=== PATIENT | male | born 1960 | race Caucasian/White ===

== ENCOUNTER → 2017-10-02 10:23 | Outpatient (REF) | payer MEDICAID, SELFPAY ==
[2017-10-02 14:08] LABS: Amphetamine/Metha Screen,Urine Negative ng/mL (<1000); Barbiturates Screen,Urine Negative ng/mL (<200); Benzodiazepines Screen,Urine Positive ng/mL (200); Cannabinoid Screen,Urine Negative ng/mL (<50); Cocaine Screen,Urine Negative ng/g (<300); Methadone Screen,Urine Negative ng/mL (<300); Opiate Screen,Urine Negative ng/mL (<300); Phencyclidine Screen,Urine Negative ng/mL (<25)
[2017-10-02 18:40] LABS: Basophils # 0.1 K/mm3 (0-0.2); Eosinophils # 0.4 K/mm3 (0.0-0.4); Eosinophils % 3.4 % (0.1-12.0); Hematocrit 44.3 % (42.0-52.0); Hemoglobin 14.4 g/dL (14.1-18.0); Lymphocytes # 1.7 K/mm3 (0.7-4.5); Lymphocytes % 16.5 K/mm3 (10-50); Mean Corpuscular HGB Conc 32.6 g/dL (31.8-35.4); Mean Corpuscular Hemoglobin 32.6 pg (27.0-31.2); Mean Platelet Volume 12.8 fl (7.4-10.4); Monocytes # 1.1 K/mm3 (0.1-1.0); Monocytes % 10.8 % (1.7-9.3); Neutrophils # 7.1 K/mm3 (1.8-7.8); Neutrophils % 68.4 % (37.0-80.0); Platelet Count 225 K/mm3 (142-424); Red Blood Count 4.43 M/mm3 (4.60-6.20); Red Cell Distribution Width 12.1 % (11.5-17.5); White Blood Count 10.4 K/mm3 (4.8-10.8)
[2017-10-02 19:10] LABS: Alanine Aminotransferase 54 U/L (12-78); Albumin Level 3.7 gm/dL (3.4-5.0); Alkaline Phosphatase 90 U/L (46-116); Anion Gap 13.3 mEq/L (5-15); Aspartate Amino Transferase 24 U/L (15-37); Bilirubin,Total 0.4 mg/dL (0.2-1.0); Blood Urea Nitrogen 22 mg/dL (7-18); Calcium 8.9 mg/dL (8.5-10.1); Carbon Dioxide 23 mmol/L (21.0-32.0); Chloride 106 mmol/L (98-107); Chol/HDL Ratio 5.2 (1-3.5); Cholesterol 232 mg/dL (140-200); Creatinine,Serum 1.47 mg/dL (0.70-1.30); Estimated Glomerular Filt Rate 50 ml/min (>60); GFR (African American) 60 ML/MIN (>60); Globulin 3.7 gm/dl (1.3-3.2); Glucose 100 mg/dL (74-106); HDL Cholesterol 45 mg/dL (27-67); LDL Cholesterol 161 mg/dL (0-130); Potassium 4.3 mmoL/L (3.5-5.1); Sodium 138 mmol/L (136-145); T4 (Thyroxine) 8.8 ug/dl (4.7-13.3); Thyroid Stimulating Hormone 13.04 uIU/ml (0.358-3.740); Total Protein,Serum 7.4 gm/dL (6.4-8.2); Triglycerides 132 mg/dL (30-200); VLDL Cholesterol 26 mg/dL (0-40)
[2017-10-04 12:14] LABS: Prostate Specific Ag <0.1 ng/mL (0.0-4.0)
[2017-10-04 12:15] LABS: PSA, Free <0.01 ng/mL
== END ==
LOC: LAB 10:23
PROVIDERS: Visit Provider Nurse Practitioner Family
DX: R53.83 Other fatigue (principal); Z79.899 Other long term (current) drug therapy; Z12.5 Encounter for screening for malignant neoplasm of prostate
CPT/HCPCS: 80053; 80061; 80305; 84153; 84154; 84436; 84443; 85025

== ENCOUNTER → 2017-12-11 17:45 | Outpatient (REF) | payer MEDICAID, SELFPAY ==
[2017-12-11 20:07] LABS: Amphetamine/Metha Screen,Urine Negative ng/mL (<1000); Barbiturates Screen,Urine Negative ng/mL (<200); Benzodiazepines Screen,Urine Positive ng/mL (200); Cannabinoid Screen,Urine Positive ng/mL (<50); Cocaine Screen,Urine Negative ng/g (<300); Methadone Screen,Urine Negative ng/mL (<300); Opiate Screen,Urine Negative ng/mL (<300); Phencyclidine Screen,Urine Negative ng/mL (<25)
== END ==
LOC: LAB 17:45
PROVIDERS: Visit Provider Nurse Practitioner Family
DX: Z79.899 Other long term (current) drug therapy (principal)
CPT/HCPCS: 80305

== ENCOUNTER → 2018-01-08 17:16 | Outpatient (REF) | payer MEDICAID, SELFPAY ==
[2018-01-08 18:14] LABS: Basophils # 0.1 K/mm3 (0-0.2); Basophils % 0.9 % (0.1-2.0); Eosinophils # 0.3 K/mm3 (0.0-0.4); Eosinophils % 3.9 % (0.1-12.0); Hemoglobin 13.2 g/dL (14.1-18.0); Lymphocytes # 1.9 K/mm3 (0.7-4.5); Lymphocytes % 22.7 K/mm3 (10-50); Mean Corpuscular HGB Conc 33.8 g/dL (31.8-35.4); Mean Corpuscular Volume 94.8 fl (80-94); Mean Platelet Volume 11.2 fl (7.4-10.4); Monocytes # 0.7 K/mm3 (0.1-1.0); Monocytes % 8.5 % (1.7-9.3); Neutrophils # 5.3 K/mm3 (1.8-7.8); Platelet Count 202 K/mm3 (142-424); Red Blood Count 4.12 M/mm3 (4.60-6.20); White Blood Count 8.3 K/mm3 (4.8-10.8)
[2018-01-08 19:39] LABS: Hemoglobin A1C 5.6 % (0.0-7.0)
[2018-01-08 19:42] LABS: Alanine Aminotransferase 42 U/L (12-78); Albumin Level 3.6 gm/dL (3.4-5.0); Alkaline Phosphatase 93 U/L (46-116); Aspartate Amino Transferase 25 U/L (15-37); Bilirubin,Total 0.3 mg/dL (0.2-1.0); Blood Urea Nitrogen 18 mg/dL (7-18); Calcium 9.3 mg/dL (8.5-10.1); Carbon Dioxide 25 mmol/L (21.0-32.0); Chloride 105 mmol/L (98-107); Chol/HDL Ratio 6.6 (1-3.5); Cholesterol 278 mg/dL (140-200); Creatinine,Serum 1.45 mg/dL (0.70-1.30); Estimated Glomerular Filt Rate 50 ml/min (>60); GFR (African American) 61 ML/MIN (>60); Globulin 3.5 gm/dl (1.3-3.2); Glucose 86 mg/dL (74-106); HDL Cholesterol 42 mg/dL (27-67); LDL Cholesterol 200 mg/dL (0-130); Sodium 141 mmol/L (136-145); T4 (Thyroxine) 9.2 ug/dl (4.7-13.3); Thyroid Stimulating Hormone 9.57 uIU/ml (0.358-3.740); Total Protein,Serum 7.1 gm/dL (6.4-8.2); Triglycerides 181 mg/dL (30-200); VLDL Cholesterol 36 mg/dL (0-40)
[2018-01-10 20:11] LABS: PSA, Free <0.01 ng/mL; Prostate Specific Ag <0.1 ng/mL (0.0-4.0)
== END ==
LOC: LAB 17:16
PROVIDERS: Visit Provider Nurse Practitioner Family
DX: F41.9 Anxiety disorder, unspecified (principal); R05 Cough; J30.89 Other allergic rhinitis; Z85.46 Personal history of malignant neoplasm of prostate
CPT/HCPCS: 80053; 80061; 83036; 84153; 84154; 84436; 84443; 85025

== ENCOUNTER → 2018-03-19 17:09 | Outpatient (REF) | payer MEDICARE, MEDICAID, SELFPAY ==
[2018-03-19 19:09] LABS: Amphetamine/Metha Screen,Urine Negative ng/mL (<1000); Barbiturates Screen,Urine Negative ng/mL (<200); Benzodiazepines Screen,Urine Negative ng/mL (<200); Cannabinoid Screen,Urine Negative ng/mL (<50); Cocaine Screen,Urine Negative ng/mL (<300); Methadone Screen,Urine Negative ng/mL (<300); Opiate Screen,Urine Negative ng/mL (<300); Phencyclidine Screen,Urine Negative ng/mL (<25)
== END ==
LOC: LAB 17:09
PROVIDERS: Visit Provider Nurse Practitioner Family
DX: Z79.899 Other long term (current) drug therapy (principal)
CPT/HCPCS: 80305

== ENCOUNTER → 2018-03-24 11:49 | Outpatient (CLI) | payer MEDICARE, MEDICAID, SELFPAY ==
[2018-03-24 11:58] LABS: Microscopic, Urine URINE MICROSCOPIC (MICROSCOPIC)
[2018-03-24 12:18] LABS: Appearance,Urine CLEAR (Clear); Bilirubin,Urine Negative (Negative); Blood, Urine Negative (Negative); Color,Urine YELLOW (Yellow); Glucose,Urine (UA) Negative (Negative); Ketones,Urine Negative (Negative); Leukocyte Esterase,Urine Negative (Negative); Nitrate,Urine Negative (Negative); PH,Urine 5.5 (5.0-8.5); Protein,Urine Negative (Negative); Specific Gravity, Urine >= 1.030 (1.005-1.030); Urobilinogen,Urine 0.2 EU/dl (0.2)
[2018-03-24 12:36] LABS: Basophils # 0.1 K/mm3 (0-0.2); Basophils % 0.8 % (0.1-2.0); Eosinophils # 0.4 K/mm3 (0.0-0.4); Eosinophils % 4.4 % (0.1-12.0); Hematocrit 42.8 % (42.0-52.0); Lymphocytes # 2.2 K/mm3 (0.7-4.5); Lymphocytes % 22.7 K/mm3 (10-50); Mean Corpuscular HGB Conc 32.7 g/dL (31.8-35.4); Mean Corpuscular Hemoglobin 31.4 pg (27.0-31.2); Mean Platelet Volume 10.4 fl (7.4-10.4); Monocytes # 0.9 K/mm3 (0.1-1.0); Monocytes % 9.2 % (1.7-9.3); Neutrophils % 62.9 % (37.0-80.0); Platelet Count 225 K/mm3 (142-424); Red Blood Count 4.46 M/mm3 (4.60-6.20); Red Cell Distribution Width 12.3 % (11.5-17.5); White Blood Count 9.6 K/mm3 (4.8-10.8)
[2018-03-24 12:44] LABS: Bacteria,Urine 1+ /lpf; Mucus,Urine 2+ /lpf; WBC,Urine Occasional #/hpf (0-3)
[2018-03-24 12:48] LABS: Creatinine,Urine Random 249 mg/dL (20-320); Total Protein,Urine Random 18.7 mg/dL (0.0-11.9)
[2018-03-24 13:33] LABS: Albumin Level 3.7 gm/dL (3.4-5.0); Anion Gap 13.1 mEq/L (5-15); Blood Urea Nitrogen 18 mg/dL (7-18); Calcium 9.1 mg/dL (8.5-10.1); Carbon Dioxide 26 mmol/L (21.0-32.0); Chloride 109 mmol/L (98-107); Creatinine,Serum 1.22 mg/dL (0.70-1.30); Estimated Glomerular Filt Rate 61 ml/min (>60); GFR (African American) 74 ML/MIN (>60); Glucose 102 mg/dL (74-106); Potassium 5.1 mmoL/L (3.5-5.1); Sodium 143 mmol/L (136-145)
[2018-03-24 13:42] LABS: Alanine Aminotransferase 31 U/L (12-78); Albumin Level 3.7 gm/dL (3.4-5.0); Albumin/Globulin Ratio 1.1 (1.1-1.8); Alkaline Phosphatase 96 U/L (46-116); Anion Gap 12.3 mEq/L (5-15); Aspartate Amino Transferase 16 U/L (15-37); Bilirubin,Total 0.4 mg/dL (0.2-1.0); Blood Urea Nitrogen 18 mg/dL (7-18); Calcium 9.1 mg/dL (8.5-10.1); Carbon Dioxide 27 mmol/L (21.0-32.0); Chloride 110 mmol/L (98-107); Chol/HDL Ratio 5.9 (1-3.5); Cholesterol 252 mg/dL (140-200); Creatinine,Serum 1.22 mg/dL (0.70-1.30); Estimated Glomerular Filt Rate 61 ml/min (>60); GFR (African American) 74 ML/MIN (>60); Globulin 3.4 gm/dl (1.3-3.2); Glucose 103 mg/dL (74-106); HDL Cholesterol 43 mg/dL (27-67); LDL Cholesterol 187 mg/dL (0-130); Potassium 5.3 mmoL/L (3.5-5.1); Sodium 144 mmol/L (136-145); Thyroid Stimulating Hormone 0.81 uIU/ml (0.358-3.740); Total Protein,Serum 7.1 gm/dL (6.4-8.2); Triglycerides 110 mg/dL (30-200); VLDL Cholesterol 22 mg/dL (0-40)
[2018-03-26 11:42] LABS: Free T4 (Free Thyroxine) 1.14 ng/dl (0.76-1.46)
[2018-03-27 07:01] LABS: PSA, Free <0.01 ng/mL; Parathyroid Hormone Intact 60 pg/mL (15-65); Prostate Specific Ag <0.1 ng/mL (0.0-4.0); Vitamin D 25 Hydroxy 28.1 ng/mL (30.0-100.0)
== END ==
PROVIDERS: Internal Medicine Nephrology; Visit Provider Nurse Practitioner Family
DX: E05.90 Thyrotoxicosis, unspecified without thyrotoxic crisis or storm (principal); E78.5 Hyperlipidemia, unspecified; I10 Essential (primary) hypertension; R33.9 Retention of urine, unspecified; R53.83 Other fatigue; N28.9 Disorder of kidney and ureter, unspecified
CPT/HCPCS: 36415; 80053; 80061; 80069; 81001; 82570; 82652; 83970; 84153; 84154; 84155; 84439; 84443; 85025

== ENCOUNTER → 2018-03-24 13:18 | Outpatient (POV) | payer MEDICARE, MEDICAID, SELFPAY | PROVIDERS: Family Provider Emergency Medicine; PCP Emergency Medicine; Visit Provider Internal Medicine Nephrology | DX: Z00.00 Encounter for general adult medical examination without abnormal findings (principal) ==

== ENCOUNTER → 2018-04-03 16:37 | Outpatient (CLI) | payer MEDICARE, MEDICAID, SELFPAY ==
[2018-04-03 18:09] LABS: Anion Gap 15.5 mEq/L (5-15); Blood Urea Nitrogen 26 mg/dL (7-18); Calcium 9.5 mg/dL (8.5-10.1); Carbon Dioxide 27 mmol/L (21.0-32.0); Chloride 106 mmol/L (98-107); Creatinine,Serum 1.56 mg/dL (0.70-1.30); Estimated Glomerular Filt Rate 46 ml/min (>60); GFR (African American) 56 ML/MIN (>60); Glucose 97 mg/dL (74-106); Potassium 4.5 mmoL/L (3.5-5.1); Sodium 144 mmol/L (136-145)
== END ==
PROVIDERS: Physician Assistant; Family Provider Emergency Medicine; PCP Emergency Medicine; Visit Provider Internal Medicine Nephrology
DX: E87.5 Hyperkalemia (principal)
CPT/HCPCS: 36415; 80048

== ENCOUNTER → 2018-05-28 16:45 | Outpatient (REF) | payer MEDICARE, MEDICAID, SELFPAY ==
[2018-05-28 19:24] LABS: Amphetamine/Metha Screen,Urine Negative ng/mL (<1000); Barbiturates Screen,Urine Negative ng/mL (<200); Benzodiazepines Screen,Urine Negative ng/mL (<200); Cannabinoid Screen,Urine Negative ng/mL (<50); Cocaine Screen,Urine Negative ng/mL (<300); Methadone Screen,Urine Negative ng/mL (<300); Opiate Screen,Urine Negative ng/mL (<300); Phencyclidine Screen,Urine Negative ng/mL (<25)
== END ==
LOC: LAB 16:45
PROVIDERS: Visit Provider Nurse Practitioner Family
DX: Z79.899 Other long term (current) drug therapy
CPT/HCPCS: 80305

== ENCOUNTER → 2018-06-23 14:52 | Outpatient (CLI) | payer MEDICARE, MEDICAID, SELFPAY ==
--- NOTE | 2018-06-23 | US_ITS ---
US kidney retroperitoneal comp Ordering Physician: Filipe Fitzgerald Patient Age: 57 years: Male HISTORY: ITS.REASON: RENAL INSUFFICIENCY Renal insufficiency. Abnormal labs. HISTORY of kidney stones. HISTORY of prostate cancer. TECHNIQUE: Ultrasound both kidneys. COMPARISON : None relevant this facility FINDINGS No hydronephrosis nor mass in either kidney.. Appear to be good color Doppler flow both kidneys Left kidney. Suggestion minimal Nonobstructive nephrolithiasis lower pole left kidney. Right kidney. 8.4 cm length x 4.6 cm x 4.76 cm. Left kidney. 9.9 cm length x 4.9 cm x 6 cm. Incidental note of shadowing gallstone in gallbladder. 2.4 cm maximum length gallstone. Partially imaged included spleen appears normal size IMPRESSION: Kidneys appear normal in size.. Cortex well-maintained bilaterally. No discrete hydronephrosis or mass. Question/Suspect small nonobstructive calculi lower pole calyx left kidney associated upper normal prominence of associated, slight generous lower pole calyx.
[2018-06-23 14:56] LABS: Microscopic, Urine URINE MICROSCOPIC (MICROSCOPIC)
[2018-06-23 15:06] LABS: Basophils # 0.1 K/mm3 (0-0.2); Basophils % 0.8 % (0.1-2.0); Eosinophils # 0.3 K/mm3 (0.0-0.4); Eosinophils % 3.4 % (0.1-12.0); Hematocrit 44.2 % (42.0-52.0); Lymphocytes # 2.5 K/mm3 (0.7-4.5); Mean Corpuscular HGB Conc 31.6 g/dL (31.8-35.4); Mean Corpuscular Hemoglobin 31.3 pg (27.0-31.2); Mean Corpuscular Volume 99.1 fl (80-94); Mean Platelet Volume 11.1 fl (7.4-10.4); Monocytes # 0.7 K/mm3 (0.1-1.0); Monocytes % 7.4 % (1.7-9.3); Neutrophils # 5.9 K/mm3 (1.8-7.8); Neutrophils % 62.4 % (37.0-80.0); Platelet Count 215 K/mm3 (142-424); Red Blood Count 4.46 M/mm3 (4.60-6.20); Red Cell Distribution Width 12.3 % (11.5-17.5); White Blood Count 9.4 K/mm3 (4.8-10.8)
[2018-06-23 15:33] LABS: Appearance,Urine CLEAR (Clear); Bilirubin,Urine Negative (Negative); Blood, Urine Negative (Negative); Color,Urine YELLOW (Yellow); Glucose,Urine (UA) Negative (Negative); Ketones,Urine Negative (Negative); Leukocyte Esterase,Urine Negative (Negative); Nitrate,Urine Negative (Negative); PH,Urine 5.5 (5.0-8.5); Protein,Urine Negative (Negative); Specific Gravity, Urine 1.015 (1.005-1.030); Urobilinogen,Urine 0.2 EU/dl (0.2)
[2018-06-23 15:47] LABS: Creatinine,Urine Random 86 mg/dL (20-320)
[2018-06-23 16:14] LABS: Bacteria,Urine Trace /lpf; Squamous Epithelial Cell,Urine Occasional #/hpf (0-5)
[2018-06-23 19:38] LABS: Albumin Level 3.7 gm/dL (3.4-5.0); Anion Gap 12.3 mEq/L (5-15); Blood Urea Nitrogen 21 mg/dL (7-18); Calcium 9.2 mg/dL (8.5-10.1); Carbon Dioxide 27 mmol/L (21.0-32.0); Chloride 106 mmol/L (98-107); Creatinine,Serum 1.33 mg/dL (0.70-1.30); Estimated Glomerular Filt Rate 55 ml/min (>60); GFR (African American) 67 ML/MIN (>60); Glucose 98 mg/dL (74-106); Phosphorous 4.3 mg/dL (2.4-4.9); Potassium 5.3 mmoL/L (3.5-5.1); Sodium 140 mmol/L (136-145)
== END ==
PROVIDERS: Visit Provider Internal Medicine Nephrology
DX: N28.9 Disorder of kidney and ureter, unspecified (principal)
CPT/HCPCS: 36415; 76770; 80069; 81001; 82570; 84155; 85025

== ENCOUNTER → 2018-07-23 20:53 | Outpatient (CLI) | payer MEDICARE, MEDICAID, SELFPAY ==
[2018-07-23 22:56] LABS: Amphetamine/Metha Screen,Urine Negative ng/mL (<1000); Barbiturates Screen,Urine Negative ng/mL (<200); Benzodiazepines Screen,Urine Negative ng/mL (<200); Cannabinoid Screen,Urine Negative ng/mL (<50); Cocaine Screen,Urine Negative ng/mL (<300); Methadone Screen,Urine Negative ng/mL (<300); Opiate Screen,Urine Negative ng/mL (<300); Phencyclidine Screen,Urine Negative ng/mL (<25)
== END ==
PROVIDERS: Visit Provider Nurse Practitioner Family
DX: Z79.899 Other long term (current) drug therapy (principal)
CPT/HCPCS: 80305

== ENCOUNTER → 2018-09-15 16:29 | Outpatient (CLI) | payer MEDICARE, MEDICAID, SELFPAY ==
[2018-09-17 08:38] LABS: PSA, Free <0.01 ng/mL; Prostate Specific Ag <0.1 ng/mL (0.0-4.0)
== END ==
PROVIDERS: Visit Provider Urology
DX: R97.20 Elevated prostate specific antigen [PSA] (principal)
CPT/HCPCS: 36415; 84153; 84154

== ENCOUNTER → 2019-02-25 18:07 | Outpatient (CLI) | payer MEDICARE, MEDICAID, SELFPAY ==
[2019-02-25 18:35] LABS: Basophils # 0.1 K/mm3 (0-0.2); Basophils % 0.8 % (0.1-2.0); Eosinophils # 0.4 K/mm3 (0.0-0.4); Eosinophils % 4.3 % (0.1-12.0); Hematocrit 46.4 % (42.0-52.0); Hemoglobin 14.3 g/dL (14.1-18.0); Lymphocytes # 2.2 K/mm3 (0.7-4.5); Lymphocytes % 24.7 % (10-50); Mean Corpuscular HGB Conc 30.7 g/dL (31.8-35.4); Mean Corpuscular Hemoglobin 30.9 pg (27.0-31.2); Mean Corpuscular Volume 100.7 fl (80-94); Mean Platelet Volume 11.4 fl (7.4-10.4); Monocytes # 0.8 K/mm3 (0.1-1.0); Monocytes % 8.6 % (1.7-9.3); Neutrophils # 5.6 K/mm3 (1.8-7.8); Neutrophils % 61.6 % (37.0-80.0); Platelet Count 230 K/mm3 (142-424); Red Blood Count 4.61 M/mm3 (4.60-6.20); Red Cell Distribution Width 13.3 % (11.5-17.5); White Blood Count 9.1 K/mm3 (4.8-10.8)
[2019-02-25 19:25] LABS: Amphetamine/Metha Screen,Urine Negative ng/mL (<1000); Barbiturates Screen,Urine Negative ng/mL (<200); Benzodiazepines Screen,Urine Negative ng/mL (<200); Cannabinoid Screen,Urine Negative ng/mL (<50); Cocaine Screen,Urine Negative ng/mL (<300); Methadone Screen,Urine Negative ng/mL (<300); Opiate Screen,Urine Negative ng/mL (<300); Phencyclidine Screen,Urine Negative ng/mL (<25)
[2019-02-25 20:10] LABS: Alanine Aminotransferase 28 U/L (12-78); Albumin Level 3.5 gm/dL (3.4-5.0); Alkaline Phosphatase 115 U/L (46-116); Anion Gap 12.8 mEq/L (5-15); Aspartate Amino Transferase 18 U/L (15-37); Bilirubin,Total 0.4 mg/dL (0.2-1.0); Blood Urea Nitrogen 22 mg/dL (7-18); Calcium 9.2 mg/dL (8.5-10.1); Carbon Dioxide 27 mmol/L (21.0-32.0); Chloride 105 mmol/L (98-107); Chol/HDL Ratio 5.9 (1-3.5); Cholesterol 226 mg/dL (140-200); Creatinine,Serum 1.47 mg/dL (0.70-1.30); Estimated Glomerular Filt Rate 49 ml/min (>60); GFR (African American) 60 ML/MIN (>60); Globulin 3.6 gm/dl (1.3-3.2); Glucose 94 mg/dL (74-106); HDL Cholesterol 38 mg/dL (27-67); LDL Cholesterol 161 mg/dL (0-130); Potassium 4.8 mmoL/L (3.5-5.1); Prostate Specific Ag Screen 0.1 ng/mL (0.0-4.0); Sodium 140 mmol/L (136-145); T4 (Thyroxine) 12.3 ug/dl (4.7-13.3); Thyroid Stimulating Hormone 0.01 uIU/ml (0.358-3.740); Total Protein,Serum 7.1 gm/dL (6.4-8.2); Triglycerides 136 mg/dL (30-200); VLDL Cholesterol 27 mg/dL (0-40)
[2019-02-27 17:13] LABS: Vitamin D 25 Hydroxy 29.5 ng/mL (30.0-100.0)
[2019-03-03 12:55] LABS: Folate 4.8 ng/mL (>3.0)
[2019-03-05 19:59] LABS: Vitamin B12 598 pg/mL (232-1245)
[2019-03-06 08:22] LABS: Alprazolam Negative (Cutoff=100); Benzodiazepines Positive ng/mL (Cutoff=100); Clonazepam Negative (Cutoff=100); Flurazepam Negative (Cutoff=100); Lorazepam Negative (Cutoff=100); Midazolam Negative (Cutoff=100); Temazepam Negative (Cutoff=100); Triazolam Negative (Cutoff=100)
== END ==
PROVIDERS: Physician Assistant; Visit Provider Nurse Practitioner Family
DX: Z79.899 Other long term (current) drug therapy (principal); I10 Essential (primary) hypertension; E03.9 Hypothyroidism, unspecified; Z12.5 Encounter for screening for malignant neoplasm of prostate; F41.9 Anxiety disorder, unspecified; R71.8 Other abnormality of red blood cells; E55.9 Vitamin D deficiency, unspecified
CPT/HCPCS: 80053; 80061; 80305; 80346; 82607; 82652; 82746; 84436; 84443; 85025; G0103

== ENCOUNTER → 2019-07-03 11:25 | Outpatient (CLI) | payer MEDICARE, MEDICAID, SELFPAY ==
--- NOTE | 2019-07-03 | CA_ITS ---
APPROVED REPORT Exam: Exercise Treadmill Technologist: anival arauz, Ht: 5 ft 7 in Wt: 178 lbs BSA: 1.92 m2 HR: 54 bpm BP: 135/87 mmHg Indications: CP, SOB Medical History Medications: Lisinopril,,,,, Levothyroxine,,,,, Metoprolol,,,,, Diazepam,,,,, Lipitor,,,,, LoraTADINE,,,,, Allergies: codiene Cardiac Risk Factors: HTN, Hyperlipidemia, Smoking Stress Test Details Test: Devin HR Resting HR: 69 bpm Max Heart Rate (APMHR): 162 bpm Max HR Achieved: 159 bpm Target HR (85% APMHR): 137 bpm % of APMHR: 98 Recovery HR: 77 bpm BP Resting BP: 135/87 mmHg Max BP: 194/90 mmHg Recovery BP: 142.0/65.0 mmHg ECG Resting ECG: NSR Clinical Exercise duration: 05:31 min Highest Stage Achieved: Stage 2: 2.5 mph at 12% grade. Exercise capacity: 7.0 METs Stress ECG Conclusion Patient c/o SOA but no other symptoms. No arrhythmias. There was < 1.5mm ST Segment Changes. Negative Stress Test Summary REST . . . . . . . Standing REST . . . . . . . Sitting REST 09:53 0.0 1.2 69 . 135/ 87 . . Stage 1 01:00 10.0 1.7 103 . . . . Stage 1 02:00 10.0 1.7 114 . . . . Stage 1 03:00 10.0 1.7 121 . 150/ 82 . . Stage 2 01:00 12.0 2.5 133 . . . . Stage 2 . . . . . . . Cardiolite injected Stage 2 02:00 12.0 2.5 147 . . . . Stage 2 02:31 12.0 2.5 149 . . . Stop exercise at 05:31 RECOVERY 01:00 0.0 0.0 135 . . . . RECOVERY 02:00 0.0 0.0 113 . . . . RECOVERY 03:00 0.0 0.0 97 . 194/ 90 . . RECOVERY 04:00 0.0 0.0 93 . 172/ 80 . . RECOVERY 05:00 0.0 0.0 80 . 172/ 80 . . RECOVERY 06:00 0.0 0.0 79 . 172/ 80 . . RECOVERY 06:16 0.0 0.0 82 . 142/ 65 . . Electronically signed by : Dave Valdovinos, 07/04/2019 11:49:12
--- NOTE | 2019-07-03 11:32 | NM_ITS ---
APPROVED REPORT Exam: Nuclear Stress Test Indication: C.P., SOB, HTN, HYPERLIPIDEMIA, SYNCOPE, FATIQUE Patient Location: Outpatient Stress Tech: Ana ChaparroPamela [place] Tech:Renu Dowd, ARRT RT(R)(N) Ht: 5 ft 7 in Wt: 178 lbs HR: 54 bpm BP: 135/87 mmHg BSA: 1.92 m2 BMI: 27.8 History: C.P., SOB, HTN, HYPERLIPIDEMIA, SYNCOPE, FATIQUE Procedure: Patient exercised on Devin protocol 5:30 minutes and sec, resting heart rate 54 bpm, resting blood pressure 135/87 mmHg, with exercise maximum heart rate achived was 138 bpm which is Greater than 85 % of the maximum predicted heart rate and blood pressure was 194/90 mmHg. Patient denied any complaint of chest pain. Patient has Adequate exercise capacity, achieved 7 METs of workload on treadmill, the blood pressure response to exercise was Adequate. sob Electrocardiogram Resting electro cardia Shakeel showed sinus bradycardia nonspecific ST-T changes, with exercise there is less than 1.[address] segment depression noted from the baseline EKG. The EKG portion of the exercise Myoview is nondiagnostic due to baseline abnormal EKG. Cardiac Stress and Resting SPECT Images: Cardiac Stress and Resting SPECT images were obtained using technetium 99m Myoview 31.2 mCi stress and 10.40 mCi at rest. Gated SPECT with analysis of segmental wall motion and calculation of the ejection fraction also done. Cardiac stress and resting SPECT images show a mild fixed defect in the inferior wall with normal contractility to SPECT is likely secondary to soft tissue attenuation, no reversible ischemia seen. Computer derived ejection fraction is 62% with no regional wall motion abnormality, right ventricle is normal size and contractility. Conclusion: 1. The EKG portion of the exercise Myoview is nondiagnostic due to baseline abnormal EKG. Patient has adequate exercise capacity achieved 7 mets of workload on treadmill, the blood pressure response to exercise was adequate, there was no exercise-induced chest discomfort. Test was stopped due to shortness of breath. 2. No scintigraphic evidence of reversible ischemia seen, fixed defect in the inferior wall is likely secondary to soft tissue attenuation from diaphragm. Computer derived ejection fraction 62% with no regional wall motion abnormality, right ventricle is normal size and contractility. 3. Likely normal exercise Myoview study. Electronically signed by : Dave Valdovinos, 07/04/2019 11:53:10
--- NOTE | 2019-07-03 11:42 | CA_ITS ---
APPROVED REPORT EXAM: Comprehensive 2D, Doppler, and color-flow Echocardiogram Bogger Operator: Cynthia Velazquez CRT Ht: 5 ft 8 in Wt: 174lbs BSA: 1.93 BP: 182/95 mmHg Indications: CP, SOA, HTN, hyperlipidemia, CASTILLO 2D Dimensions Aortic Root 2.90 cm M: 3.1 - 3.7 Left Atrium 3.40 cm M: 3.0 - 4.0 LVOT 1.66 cm (M/F) 1.5-2.5 M-Mode Dimensions RVDd 1.54 cm (0.9-2.6) LVDd 4.23 cm (3.5-5.7) LVDs 3.16 cm (3.5-5.7) IVSd 1.00 cm (0.6-1.1) PWd 1.04 cm (0.6-1.1) EF (Teich) 50.30% FS 25.30% EDV (Teich) 79.90 mL ESV (Teich) 39.70 mL LV Diastology E/A Ratio 1.00 Mitral Valve MV A Velocity 85.00 (40-130 cm/s) Left Ventricle Left atrium is normal size, left ventricle is normal size, mild concentric left ventricular hypertrophy, visually estimated ejection fraction 55% with no regional wall motion abnormality. Diastolic parameters are within normal range. Right Ventricle Right atrium and right ventricular normal size and contractility. Aortic Valve Aortic valve is grossly normal, there is no aortic stenosis aortic insufficiency. Mitral Valve Mitral valve is grossly normal, there is no mitral stenosis, there is mild mitral regurgitation. Tricuspid Valve Tricuspid valve is grossly normal, there is mild tricuspid regurgitation. Pulmonic Valve Pulmonic valve is poorly visualized. Great Vessels Aortic root is normal size. Pericardium No significant pericardial effusion noted. Conclusion 1. Normal left ventricular size, preserved left ventricular systolic function, visually estimated ejection fraction 55% with no regional wall motion abnormality, diastolic parameters are within normal range. 2. Mild mitral and tricuspid regurgitation 3. No significant pericardial effusion noted. Electronically signed by : Dave Valdovinos, 07/04/2019 12:20:09
--- NOTE | 2019-07-03 13:40 | HMH.ITSHM ---
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 [] metoprolol loratadine lisinopril levothyroxine diazepam atorvastatin
== END ==
PROVIDERS: PCP Emergency Medicine; Visit Provider Urology
DX: E78.5 Hyperlipidemia, unspecified (principal); I10 Essential (primary) hypertension; R07.9 Chest pain, unspecified
CPT/HCPCS: 78452; 93017; 93306; A9502

== ENCOUNTER → 2019-08-06 13:55 | Outpatient (CLI) | payer MEDICARE, MEDICAID, SELFPAY ==
[2019-08-06 14:11] LABS: Basophils # 0.1 K/mm3 (0-0.2); Eosinophils # 0.3 K/mm3 (0.0-0.4); Eosinophils % 3.7 % (0.1-12.0); Hemoglobin 13.7 g/dL (14.1-18.0); Lymphocytes # 2.3 K/mm3 (0.7-4.5); Lymphocytes % 24.8 % (10-50); Mean Corpuscular HGB Conc 31.8 g/dL (31.8-35.4); Mean Corpuscular Hemoglobin 32.5 pg (27.0-31.2); Mean Corpuscular Volume 102.1 fl (80-94); Mean Platelet Volume 11.5 fl (7.4-10.4); Monocytes # 0.9 K/mm3 (0.1-1.0); Monocytes % 9.7 % (1.7-9.3); Neutrophils # 5.7 K/mm3 (1.8-7.8); Neutrophils % 60.8 % (37.0-80.0); Platelet Count 181 K/mm3 (142-424); Red Blood Count 4.22 M/mm3 (4.60-6.20); Red Cell Distribution Width 13.3 % (11.5-17.5); White Blood Count 9.4 K/mm3 (4.8-10.8)
[2019-08-06 16:22] LABS: Alanine Aminotransferase 29 U/L (12-78); Albumin Level 3.5 gm/dL (3.4-5.0); Albumin/Globulin Ratio 1.1 (1.1-1.8); Alkaline Phosphatase 118 U/L (46-116); Anion Gap 13.7 mEq/L (5-15); Aspartate Amino Transferase 17 U/L (15-37); Bilirubin,Total 0.4 mg/dL (0.2-1.0); Blood Urea Nitrogen 14 mg/dL (7-18); Calcium 8.7 mg/dL (8.5-10.1); Carbon Dioxide 28 mmol/L (21.0-32.0); Chloride 107 mmol/L (98-107); Chol/HDL Ratio 3.2 (1-3.5); Cholesterol 147 mg/dL (140-200); Creatinine,Serum 1.53 mg/dL (0.70-1.30); Estimated Glomerular Filt Rate 47 ml/min (>60); GFR (African American) 57 ML/MIN (>60); Globulin 3.3 gm/dl (1.3-3.2); Glucose 81 mg/dL (74-106); HDL Cholesterol 46 mg/dL (27-67); LDL Cholesterol 84 mg/dL (0-130); Potassium 4.7 mmoL/L (3.5-5.1); Sodium 144 mmol/L (136-145); T4 (Thyroxine) 13.3 ug/dl (4.7-13.3); Thyroid Stimulating Hormone 0.61 uIU/ml (0.358-3.740); Total Protein,Serum 6.8 gm/dL (6.4-8.2); Triglycerides 84 mg/dL (30-200); VLDL Cholesterol 17 mg/dL (0-40)
[2019-08-08 13:05] LABS: Vitamin D 25 Hydroxy 23.4 ng/mL (30.0-100.0)
== END ==
PROVIDERS: Visit Provider Nurse Practitioner Family
DX: K21.9 Gastro-esophageal reflux disease without esophagitis (principal); R06.00 Dyspnea, unspecified; R53.83 Other fatigue; E05.90 Thyrotoxicosis, unspecified without thyrotoxic crisis or storm; R07.9 Chest pain, unspecified; E55.9 Vitamin D deficiency, unspecified
CPT/HCPCS: 36415; 80053; 80061; 82652; 84436; 84443; 85025

== ENCOUNTER → 2019-08-11 09:35 | Outpatient (CLI) | payer MEDICARE, MEDICAID, SELFPAY ==
--- NOTE | 2019-08-11 09:35 | US_ITS ---
PROCEDURE: US GALLBLADDER CLINICAL INDICATION: gallstones COMPARISON: No exams were available for comparison FINDINGS: Pancreas: Unremarkable/Not well seen Liver: Unremarkable. There is appropriate direction of blood flow within a non dilated portal vein. Right kidney: Unremarkable appearing. No hydronephrosis. Gallbladder: There are curvilinear shadowing echogenic foci the largest is 3.0 centimeters. There is no gallbladder wall thickening or pericholecystic fluid. Common bile duct is normal measuring 3.7 millimeters. IMPRESSION: Uncomplicated cholelithiasis. Dictated by: Jb Crow 08/11/2019 13:37 Electronically signed by Jb Crow in [facility] 08/11/2019 13:37
== END ==
PROVIDERS: PCP Emergency Medicine; Visit Provider Nurse Practitioner Family
DX: R10.9 Unspecified abdominal pain (principal)
CPT/HCPCS: 76705

== ENCOUNTER → 2019-09-09 17:26 | Outpatient (CLI) | payer MEDICARE, SELFPAY ==
[2019-09-09 19:24] LABS: Amphetamine/Metha Screen,Urine Negative ng/mL (<1000); Barbiturates Screen,Urine Negative ng/mL (<200); Benzodiazepines Screen,Urine Positive ng/mL (<200); Cannabinoid Screen,Urine Negative ng/mL (<50); Cocaine Screen,Urine Negative ng/mL (<300); Methadone Screen,Urine Negative ng/mL (<300); Opiate Screen,Urine Negative ng/mL (<300); Phencyclidine Screen,Urine Negative ng/mL (<25)
== END ==
PROVIDERS: Visit Provider Nurse Practitioner Family
DX: Z79.899 Other long term (current) drug therapy (principal)
CPT/HCPCS: 80305

== ENCOUNTER → 2019-09-23 07:53 | Outpatient (CLI) | payer MEDICARE, OTHER, SELFPAY ==
--- NOTE | 2019-09-23 08:10 | CT_ITS ---
PROCEDURE: CT ABDOMEN W CON CLINICAL HISTORY: LUQ pain Left upper quadrant pain, back pain, nausea COMPARISON: RETROPCM US kidney retroperitoneal comp from 06/23/2018 US GALLBLADDER from 08/11/2019 TECHNIQUE: 75 mL Optiray 350 administered IV. Oral Readi-Cat Axial images obtained with sagittal and coronal reformats. All CT scans at the facility use one or more dose reduction, viz: automated exposure control, ma/kV adjustment per patient size (including targeted exams where dose is matched to indication, i.e. head), or iterative reconstruction technique. FINDINGS: No acute finding in the lung bases. Small hypodensity is present at the falciform ligament region anteriorly and could be due to small cyst or partial volume averaging artifact. There are gallstones noted. The spleen, adrenal glands, pancreas has an unremarkable appearance. There is a 13 mm hypodensity in the right kidney laterally possibly due to a cyst however, a cyst was not demonstrated on the most recent ultrasound of 06/23/2018. Isodense to the also noted in the left kidney medially at 1.5 cm. No intestinal obstruction or free air. Unremarkable appendix. Colonic diverticulosis. The pelvis is not included in the exam. There is degenerative disc disease at L5-S1. IMPRESSION: 1. Cholelithiasis. 2. Bilateral renal hypodensities which may be due to cyst and may be confirmed with ultrasound. 3. Colonic diverticulosis Dictated by: Gary Rojas MD 09/24/2019 08:23 Electronically signed by Gary Rojas MD in [facility] 09/24/2019 08:23
[2019-09-23 08:27] LABS: Blood Urea Nitrogen 19 mg/dL (7-18); Estimated Glomerular Filt Rate 48 ml/min (>60); GFR (African American) 58 ML/MIN (>60)
== END ==
PROVIDERS: PCP Emergency Medicine; Visit Provider Surgery
DX: K80.20 Calculus of gallbladder without cholecystitis without obstruction (principal)
CPT/HCPCS: 36415; 74160; 82565; 84520; Q9967

== ENCOUNTER → 2019-10-21 13:26 | Outpatient (CLI) | payer MEDICARE, OTHER, SELFPAY ==
[2019-10-21 13:38] LABS: Microscopic, Urine URINE MICROSCOPIC (MICROSCOPIC)
[2019-10-21 13:59] LABS: Basophils # 0.1 K/mm3 (0-0.2); Basophils % 0.9 % (0.1-2.0); Eosinophils # 0.6 K/mm3 (0.0-0.4); Eosinophils % 5.6 % (0.1-12.0); Hematocrit 43.1 % (42.0-52.0); Hemoglobin 13.8 g/dL (14.1-18.0); Lymphocytes # 2.8 K/mm3 (0.7-4.5); Lymphocytes % 24.9 % (10-50); Mean Corpuscular Hemoglobin 31.7 pg (27.0-31.2); Mean Platelet Volume 10.9 fl (7.4-10.4); Monocytes # 1.2 K/mm3 (0.1-1.0); Monocytes % 10.4 % (1.7-9.3); Neutrophils # 6.4 K/mm3 (1.8-7.8); Neutrophils % 58.1 % (37.0-80.0); Platelet Count 196 K/mm3 (142-424); Red Blood Count 4.35 M/mm3 (4.60-6.20); Red Cell Distribution Width 13.8 % (11.5-17.5)
[2019-10-21 15:08] LABS: Appearance,Urine CLEAR (Clear); Bilirubin,Urine Negative (Negative); Blood, Urine Negative (Negative); Color,Urine YELLOW (Yellow); Glucose,Urine (UA) Negative (Negative); Ketones,Urine Negative (Negative); Leukocyte Esterase,Urine Negative (Negative); Nitrate,Urine Negative (Negative); PH,Urine 5.5 (5.0-8.5); Protein,Urine Negative (Negative); Specific Gravity, Urine >= 1.030 (1.005-1.030); Urobilinogen,Urine 0.2 EU/dl (0.2)
[2019-10-21 15:18] LABS: Creatinine,Urine Random 148 mg/dL (Not Estab.)
[2019-10-21 16:04] LABS: RBC,Urine Occasional #/hpf (0-3); Squamous Epithelial Cell,Urine Occasional #/hpf (0-5); WBC,Urine Occasional #/hpf (0-3)
[2019-10-21 17:00] LABS: Chloride 107 mmol/L (98-107)
[2019-10-21 17:01] LABS: Albumin Level 3.8 g/dl (3.5-5.0); Potassium 4.8 mmoL/L (3.5-5.1); Sodium 141 mmol/L (136-145)
[2019-10-21 17:03] LABS: Blood Urea Nitrogen 22 mg/dl (9-20); Estimated Glomerular Filt Rate 57 ml/min (>60); GFR (African American) 68 ML/MIN (>60)
[2019-10-21 17:04] LABS: Anion Gap 11.8 mEq/L (5-15); Calcium 9.3 mg/dl (8.4-10.2); Carbon Dioxide 27 mmol/L (22.0-30.0); Glucose 76 mg/dl (74-100); Phosphorous 3.8 mg/dl (2.5-4.5)
[2019-10-23 10:31] LABS: Parathyroid Hormone Intact 35 pg/mL (15-65); Vitamin D 25 Hydroxy 31.1 ng/mL (30.0-100.0)
== END ==
PROVIDERS: Visit Provider Internal Medicine Nephrology
DX: N28.9 Disorder of kidney and ureter, unspecified (principal)
CPT/HCPCS: 36415; 80069; 81001; 82570; 82652; 83970; 84155; 85025

== ENCOUNTER → 2019-10-26 12:48 | Outpatient (POV) | payer MEDICARE, OTHER, SELFPAY | PROVIDERS: PCP Emergency Medicine; Visit Provider Internal Medicine Nephrology | DX: Z00.00 Encounter for general adult medical examination without abnormal findings (principal) ==

== ENCOUNTER → 2019-12-17 16:17 | Outpatient (CLI) | payer MEDICARE, OTHER, SELFPAY ==
[2019-12-17 17:24] LABS: Thyroid Stimulating Hormone 0.07 uIU/mL (0.465-4.68)
[2019-12-17 20:10] LABS: Free T4 (Free Thyroxine) 1.63 ng/dl (0.78-2.19)
== END ==
PROVIDERS: Visit Provider Nurse Practitioner Family
DX: E03.9 Hypothyroidism, unspecified (principal)
CPT/HCPCS: 84439; 84443

== ENCOUNTER → 2020-04-08 17:46 | Outpatient (CLI) | payer MEDICARE, OTHER, SELFPAY ==
[2020-04-08 18:22] LABS: Basophils # 0.1 K/mm3 (0-0.2); Basophils % 0.6 % (0.1-2.0); Eosinophils # 0.4 K/mm3 (0.0-0.4); Hematocrit 36.5 % (42.0-52.0); Hemoglobin 12.1 g/dL (14.1-18.0); Lymphocytes # 2.2 K/mm3 (0.7-4.5); Lymphocytes % 16.4 % (10-50); Mean Corpuscular HGB Conc 33.1 g/dL (31.8-35.4); Mean Corpuscular Hemoglobin 33.1 pg (27.0-31.2); Mean Corpuscular Volume 99.9 fl (80-94); Monocytes # 0.7 K/mm3 (0.1-1.0); Monocytes % 5.3 % (1.7-9.3); Neutrophils # 9.9 K/mm3 (1.8-7.8); Neutrophils % 74.7 % (37.0-80.0); Platelet Count 414 K/mm3 (142-424); Red Blood Count 3.65 M/mm3 (4.60-6.20); Red Cell Distribution Width 12.7 % (11.5-17.5); White Blood Count 13.2 K/mm3 (4.8-10.8)
[2020-04-08 18:53] LABS: Alanine Aminotransferase 49 U/L (12-78); Albumin Level 3.3 g/dl (3.5-5.0); Albumin/Globulin Ratio 0.8 (1.1-1.8); Alkaline Phosphatase 155 U/L (38-126); Anion Gap 14.2 mEq/L (5-15); Aspartate Amino Transferase 60 U/L (17-59); Bilirubin,Total 0.7 mg/dl (0.2-1.3); Blood Urea Nitrogen 16 mg/dl (9-20); Calcium 8.9 mg/dl (8.4-10.2); Carbon Dioxide 29 mmol/L (22.0-30.0); Chloride 101 mmol/L (98-107); Estimated Glomerular Filt Rate 62 ml/min (>60); GFR (African American) 75 ML/MIN (>60); Globulin 3.9 g/dL (1.3-3.2); Glucose 96 mg/dl (74-100); HDL Cholesterol 24 mg/dl (40-60); Potassium 4.2 mmoL/L (3.5-5.1); Sodium 140 mmol/L (136-145); Total Protein,Serum 7.2 g/dl (6.3-8.2)
[2020-04-08 18:58] LABS: Chol/HDL Ratio 5.6 (1-3.5); Cholesterol 135 mg/dl (140-200)
[2020-04-08 19:05] LABS: Direct LDL Cholesterol 89.71 mg/dL (100-129); Triglycerides 147 mg/dl (30-150); VLDL Cholesterol 29 mg/dL (0-40)
[2020-04-08 19:11] LABS: T4 (Thyroxine) 17.6 ug/dl (5.53-11.0)
[2020-04-08 19:22] LABS: Coronavirus 19 IgG Antibody Negative (Negative); Coronavirus 19 IgM Antibody Negative (Negative)
[2020-04-08 19:25] LABS: Prostate Specific Ag, Diagnost 0.077 ng/ml (0.0-4.0); Thyroid Stimulating Hormone < 0.02 uIU/mL (0.465-4.68)
== END ==
PROVIDERS: Visit Provider Nurse Practitioner Family
DX: K21.9 Gastro-esophageal reflux disease without esophagitis (principal); R06.00 Dyspnea, unspecified; R07.9 Chest pain, unspecified; Z85.46 Personal history of malignant neoplasm of prostate; I10 Essential (primary) hypertension; Z03.818 Encounter for observation for suspected exposure to other biological agents ruled out
CPT/HCPCS: 80053; 80061; 84153; 84436; 84443; 85025; 86328

== ENCOUNTER → 2020-04-13 08:53 | Outpatient (CLI) | payer MEDICARE, OTHER, SELFPAY ==
--- NOTE | 2020-04-13 08:57 | XR_ITS ---
PROCEDURE: XR CHEST 2V CLINICAL HISTORY: elevated wbc,alk phos Chest congestion, smoker COMPARISON: CR CXR CHEST(2 VIEWS-NOT PORTABLE) from 07/30/[address] ABDOMEN W CON from 09/23/2019 FINDINGS: Unremarkable cardiovascular structures. Calcified granuloma is present in the left upper lobe. Pleural thickening is noted in the right mid and lower hemithorax. This appears somewhat greater compared to the previous study. The remaining lungs are clear. No lobar consolidation or collapse. IMPRESSION: Increasing pleural thickening along the right mid lower hemithorax. This may be better evaluated with chest CT if clinically warranted otherwise negative Dictated by: Gary Rojas MD 04/13/2020 14:09 Gary Rojas MD in [facility] 04/13/2020 14:09
== END ==
PROVIDERS: PCP Nurse Practitioner Family; Visit Provider Nurse Practitioner Family
DX: R74.8 Abnormal levels of other serum enzymes (principal)
CPT/HCPCS: 71046

== ENCOUNTER → 2020-04-19 09:05 | Outpatient (CLI) | payer MEDICARE, OTHER, SELFPAY ==
[2020-04-19 09:09] LABS: MANUAL DIFFERENTIAL MANUAL DIFFERENTIAL (MANUAL DIFF)
[2020-04-19 09:23] LABS: Basophils # 0.1 K/mm3 (0-0.2); Basophils % 0.6 % (0.1-2.0); Eosinophils # 0.4 K/mm3 (0.0-0.4); Eosinophils % 3.2 % (0.1-12.0); Hematocrit 39.3 % (42.0-52.0); Hemoglobin 12.8 g/dL (14.1-18.0); Lymphocytes % 16.4 % (10-50); Mean Corpuscular HGB Conc 32.6 g/dL (31.8-35.4); Mean Corpuscular Hemoglobin 32.8 pg (27.0-31.2); Mean Corpuscular Volume 100.6 fl (80-94); Mean Platelet Volume 9.5 fl (7.4-10.4); Monocytes # 1.2 K/mm3 (0.1-1.0); Monocytes % 9.6 % (1.7-9.3); Neutrophils # 8.7 K/mm3 (1.8-7.8); Neutrophils % 70.1 % (37.0-80.0); Platelet Count 296 K/mm3 (142-424); Red Blood Count 3.91 M/mm3 (4.60-6.20); Red Cell Distribution Width 12.9 % (11.5-17.5); White Blood Count 12.4 K/mm3 (4.8-10.8)
[2020-04-19 09:46] LABS: Eosinophils % 2 % (0-3); Lymphocytes % 16 % (10-50); Monocytes % 4 % (2-9); Neutrophils % 78 % (42-76); Platelet Estimate Normal; Total Cells Counted 100
[2020-04-19 09:47] LABS: Hypochromasia 1+; Macrocytosis 1+
== END ==
PROVIDERS: Visit Provider Nurse Practitioner Family
DX: D72.829 Elevated white blood cell count, unspecified (principal)
CPT/HCPCS: 36415; 85007; 85014; 85018; 85048; 85049

== ENCOUNTER → 2020-05-11 07:16 | Outpatient (CLI) | payer MEDICARE, OTHER, SELFPAY ==
--- NOTE | 2020-05-11 07:17 | CT_ITS ---
PROCEDURE: CT CHEST WO CON CLINICAL INDICATION: abnormal ct chest COMPARISON: PA and lateral chest 04/13/2020 TECHNIQUE: Axial images obtained with sagittal and coronal reformats. All CT scans at the facility use one or more dose reduction, viz: automated exposure control, ma/kV adjustment per patient size (including targeted exams where dose is matched to indication, i.e. head), or iterative reconstruction technique. FINDINGS: HEART AND MEDIASTINAL STRUCTURES: Cardiac size is normal. There is minimal coronary artery calcification noted. There is no pericardial effusion. LUNGS AND PLEURAL SPACES: The lung connor are well-expanded and appear clear of infiltrate. There is a calcified granuloma left upper lobe. There is diffuse pleural thickening right lower lateral anterior chest wall measuring up to 1 point 5 x 1.6 cm in thickness. There is mild and diffuse pleural thickening left lower lateral anterior chest wall. There are no definite pleural calcifications noted. BONY STRUCTURES: No acute bony abnormalities apparent. There are mild multilevel degenerate changes lower thoracic spine. UPPER ABDOMEN: There is a large calcified gallstone within the gallbladder with mild thickening of the gallbladder wall. ADDITIONAL FINDINGS: No other significant abnormalities. IMPRESSION: Diffuse pleural thickening both lower lateral anterior chest motta. This possibly represents changes from previous repeated bouts of pleurisy. If there is a history of asbestos exposure developing mesothelial Ms. An outside possibility though as mentioned there are no calcified plaques identified. Recommend follow-up CT scan of the chest in 6-8 months for continuing evaluation. Dictated by: Dr. Jm Mckenzie MD 05/11/2020 09:37 Dr. mJ Mckenzie MD in [place] 05/11/2020 09:37
== END ==
PROVIDERS: PCP Nurse Practitioner Family; Visit Provider Nurse Practitioner Family
DX: R93.89 Abnormal findings on diagnostic imaging of other specified body structures (principal)
CPT/HCPCS: 71250

== ENCOUNTER → 2020-11-09 14:30 | Outpatient (CLI) | payer MEDICARE, OTHER, SELFPAY ==
--- NOTE | 2020-11-09 14:30 | CT_ITS ---
PROCEDURE: CT CHEST WO CON CLINICAL INDICATION: Pleural thickening followup COMPARISON: CT CT CHEST WO CON from 05/11/2020 TECHNIQUE: Axial images obtained with sagittal and coronal reformats. All CT scans at the facility use one or more dose reduction, viz: automated exposure control, ma/kV adjustment per patient size (including targeted exams where dose is matched to indication, i.e. head), or iterative reconstruction technique. 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 This is a normal variant. There are few scattered small mediastinal lymph nodes. Coronary artery calcifications are present. LUNGS AND PLEURAL SPACES: Calcified granuloma is present in the left upper lobe. No lobar consolidation or collapse. Pleural thickening along the lower hemithorax on both sides is of fat density and is consistent pleural lipomatosis a benign etiology. Prominent mediastinal fat is also noted. No suspicious nodules or suspicious pleural masses are evident. BONY STRUCTURES: There are degenerative changes in the thoracic spine UPPER ABDOMEN: Cholelithiasis ADDITIONAL FINDINGS: No other significant abnormalities. IMPRESSION: Overall no significant change with no acute finding. 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
== END ==
PROVIDERS: PCP Emergency Medicine; Visit Provider Internal Medicine Pulmonary Disease
DX: J92.9 Pleural plaque without asbestos (principal)
CPT/HCPCS: 71250

== ENCOUNTER → 2020-11-16 14:29 | Outpatient (CLI) | payer MEDICARE, OTHER, SELFPAY ==
[2020-11-16 14:54] LABS: Chloride 106 mmol/L (98-107)
[2020-11-16 14:55] LABS: Potassium 5.1 mmoL/L (3.5-5.1); Sodium 143 mmol/L (136-145)
[2020-11-16 14:57] LABS: Alanine Aminotransferase 54 U/L (12-78); Albumin Level 4.4 g/dl (3.5-5.0); Albumin/Globulin Ratio 1.4 (1.1-1.8); Alkaline Phosphatase 118 U/L (38-126); Anion Gap 13.1 mEq/L (5-15); Aspartate Amino Transferase 45 U/L (17-59); Bilirubin,Total 0.4 mg/dl (0.2-1.3); Blood Urea Nitrogen 23 mg/dl (9-20); Carbon Dioxide 29 mmol/L (22.0-30.0); Estimated Glomerular Filt Rate 52 ml/min (>60); GFR (African American) 63 ML/MIN (>60); Globulin 3.2 g/dL (1.3-3.2); Total Protein,Serum 7.6 g/dl (6.3-8.2)
[2020-11-16 14:58] LABS: Calcium 9.3 mg/dl (8.4-10.2); Chol/HDL Ratio 3.7 (1-3.5); Cholesterol 160 mg/dl (140-200); Glucose 99 mg/dl (74-100); HDL Cholesterol 43 mg/dl (40-60); Triglycerides 307 mg/dl (30-150); VLDL Cholesterol 61 mg/dL (0-40)
[2020-11-16 15:02] LABS: Basophils # 0.1 K/mm3 (0-0.2); Basophils % 0.8 % (0.1-2.0); Eosinophils # 0.4 K/mm3 (0.0-0.4); Eosinophils % 3.6 % (0.1-12.0); Hematocrit 43.9 % (42.0-52.0); Hemoglobin 14.9 g/dL (14.1-18.0); Lymphocytes # 2.5 K/mm3 (0.7-4.5); Lymphocytes % 22.3 % (10-50); Mean Corpuscular Hemoglobin 34.5 pg (27.0-31.2); Mean Corpuscular Volume 101.5 fl (80-94); Mean Platelet Volume 13.4 fl (7.4-10.4); Monocytes # 0.9 K/mm3 (0.1-1.0); Neutrophils # 7.4 K/mm3 (1.8-7.8); Neutrophils % 65.3 % (37.0-80.0); Platelet Count 226 K/mm3 (142-424); Red Blood Count 4.32 M/mm3 (4.60-6.20); Red Cell Distribution Width 12.8 % (11.5-17.5); White Blood Count 11.4 K/mm3 (4.8-10.8)
[2020-11-16 15:09] LABS: Direct LDL Cholesterol 74.45 mg/dL (100-129)
[2020-11-16 15:14] LABS: 25-OH Vitamin D, Total 25.3 ng/mL (30-100); T4 (Thyroxine) 11.7 ug/dl (5.53-11.0)
[2020-11-16 15:28] LABS: Thyroid Stimulating Hormone 0.33 uIU/mL (0.465-4.68)
[2020-11-16 16:33] LABS: Barbiturates Screen,Urine Negative ng/ml (<200); Benzodiazepines Screen,Urine Positive ng/ml (<200)
[2020-11-16 16:34] LABS: Amphetamine/Metha Screen,Urine Negative ng/ml (<1000)
[2020-11-16 16:35] LABS: Cannabinoid Screen,Urine Negative ng/ml (<50); Methadone Screen,Urine Negative ng/ml (<300)
[2020-11-16 16:36] LABS: Cocaine Screen,Urine Negative ng/ml (<300); Opiate Screen,Urine Negative ng/ml (<300)
[2020-11-16 16:37] LABS: Phencyclidine Screen,Urine Negative ng/ml (<25)
[2020-11-18 12:37] LABS: PSA, Free 0.02 ng/mL; Prostate Specific Ag 0.1 ng/mL (0.0-4.0)
== END ==
PROVIDERS: Visit Provider Nurse Practitioner Family
DX: E05.90 Thyrotoxicosis, unspecified without thyrotoxic crisis or storm (principal); E55.9 Vitamin D deficiency, unspecified; E78.5 Hyperlipidemia, unspecified; F41.9 Anxiety disorder, unspecified; I10 Essential (primary) hypertension; K21.9 Gastro-esophageal reflux disease without esophagitis; Z79.899 Other long term (current) drug therapy; R06.00 Dyspnea, unspecified; R07.9 Chest pain, unspecified; Z85.46 Personal history of malignant neoplasm of prostate
CPT/HCPCS: 80053; 80061; 80305; 82306; 84153; 84154; 84436; 84443; 85025

== ENCOUNTER → 2021-07-19 07:58 | Outpatient (CLI) | payer MEDICARE, OTHER, SELFPAY ==
[2021-07-19 08:44] LABS: Basophils # 0.1 K/mm3 (0-0.2); Basophils % 1.2 % (0.1-2.0); Eosinophils # 0.5 K/mm3 (0.0-0.4); Eosinophils % 4.2 % (0.1-12.0); Hematocrit 44.5 % (42.0-52.0); Hemoglobin 14.8 g/dL (14.1-18.0); Lymphocytes # 2.5 K/mm3 (0.7-4.5); Lymphocytes % 21.7 % (10-50); Mean Corpuscular HGB Conc 33.3 g/dL (31.8-35.4); Mean Corpuscular Hemoglobin 33.1 pg (27.0-31.2); Mean Corpuscular Volume 99.2 fl (80-94); Mean Platelet Volume 11.5 fl (7.4-10.4); Monocytes % 8.9 % (1.7-9.3); Neutrophils # 7.4 K/mm3 (1.8-7.8); Platelet Count 233 K/mm3 (142-424); Red Blood Count 4.49 M/mm3 (4.60-6.20); Red Cell Distribution Width 12.6 % (11.5-17.5); White Blood Count 11.5 K/mm3 (4.8-10.8)
[2021-07-19 09:25] LABS: Chloride 103 mmol/L (98-107); Potassium 5.3 mmoL/L (3.5-5.1); Sodium 140 mmol/L (136-145)
[2021-07-19 09:27] LABS: Alanine Aminotransferase 39 U/L (12-78); Alkaline Phosphatase 91 U/L (38-126); Aspartate Amino Transferase 41 U/L (17-59); Bilirubin,Total 0.5 mg/dl (0.2-1.3); Blood Urea Nitrogen 35 mg/dl (9-20); Estimated Glomerular Filt Rate 48 ml/min (>60); GFR (African American) 58 ML/MIN (>60)
[2021-07-19 09:28] LABS: Albumin Level 4.6 g/dl (3.5-5.0); Albumin/Globulin Ratio 1.6 (1.1-1.8); Anion Gap 15.3 mEq/L (5-15); Calcium 9.5 mg/dl (8.4-10.2); Carbon Dioxide 27 mmol/L (22.0-30.0); Chol/HDL Ratio 3.7 (1-3.5); Cholesterol 159 mg/dl (140-200); Globulin 2.8 g/dL (1.3-3.2); Glucose 100 mg/dl (74-100); HDL Cholesterol 43 mg/dl (40-60); Total Protein,Serum 7.4 g/dl (6.3-8.2); Triglycerides 155 mg/dl (30-150); VLDL Cholesterol 31 mg/dL (0-40)
[2021-07-19 09:39] LABS: Direct LDL Cholesterol 93.78 mg/dL (100-129)
[2021-07-19 09:46] LABS: 25-OH Vitamin D, Total 58.2 ng/mL (30-100)
[2021-07-19 09:59] LABS: Thyroid Stimulating Hormone 4.44 uIU/mL (0.465-4.68)
[2021-07-19 10:00] LABS: Prostate Specific Ag, Diagnost 0.117 ng/ml (0.0-4.0)
[2021-07-19 11:30] LABS: Hemoglobin A1C 5.6 % (4.0-6.0)
[2021-07-19 16:45] LABS: T4 (Thyroxine) 9.2 ug/dl (5.53-11.0)
== END ==
PROVIDERS: Physician Assistant; Visit Provider Nurse Practitioner Family
DX: E03.9 Hypothyroidism, unspecified (principal); E55.9 Vitamin D deficiency, unspecified; E78.5 Hyperlipidemia, unspecified; F41.9 Anxiety disorder, unspecified; I10 Essential (primary) hypertension; Z85.46 Personal history of malignant neoplasm of prostate; R73.09 Other abnormal glucose; R07.9 Chest pain, unspecified; R06.00 Dyspnea, unspecified
CPT/HCPCS: 36415; 80053; 80061; 82306; 83036; 84153; 84436; 84443; 85025

== ENCOUNTER → 2021-12-22 11:45 | Outpatient (CLI) | payer MEDICARE, OTHER, SELFPAY ==
[2021-12-22 18:23] LABS: Amphetamine/Metha Screen,Urine Negative ng/ml (<1000)
[2021-12-22 18:24] LABS: Barbiturates Screen,Urine Negative ng/ml (<200)
[2021-12-22 18:25] LABS: Benzodiazepines Screen,Urine Positive ng/ml (<200); Cannabinoid Screen,Urine Negative ng/ml (<50)
[2021-12-22 18:26] LABS: Cocaine Screen,Urine Negative ng/ml (<300)
[2021-12-22 18:27] LABS: Methadone Screen,Urine Negative ng/ml (<300); Opiate Screen,Urine Negative ng/ml (<300)
[2021-12-22 18:28] LABS: Phencyclidine Screen,Urine Negative ng/ml (<25)
== END ==
PROVIDERS: PCP Nurse Practitioner Family; Visit Provider Nurse Practitioner Family
DX: Z79.899 Other long term (current) drug therapy (principal)
CPT/HCPCS: 80305

== ENCOUNTER → 2022-02-14 06:47 | Outpatient (CLI) | payer MEDICARE, OTHER, SELFPAY ==
[2022-02-13 20:43] LABS: Prostate Specific Ag Screen 0.2 ng/ml (0.0-4.0)
== END ==
PROVIDERS: PCP Nurse Practitioner Family; Visit Provider Nurse Practitioner Family
DX: Z12.5 Encounter for screening for malignant neoplasm of prostate (principal); Z85.46 Personal history of malignant neoplasm of prostate
CPT/HCPCS: G0103

== ENCOUNTER → 2022-05-02 06:16 | Outpatient (CLI) | payer MEDICARE, OTHER, SELFPAY ==
[2022-05-02 18:42] LABS: Amphetamine/Metha Screen,Urine Negative ng/ml (<1000)
[2022-05-02 18:43] LABS: Barbiturates Screen,Urine Negative ng/ml (<200)
[2022-05-02 18:44] LABS: Benzodiazepines Screen,Urine Positive ng/ml (<200)
[2022-05-02 18:45] LABS: Cannabinoid Screen,Urine Negative ng/ml (<50); Cocaine Screen,Urine Negative ng/ml (<300)
[2022-05-02 18:46] LABS: Methadone Screen,Urine Negative ng/ml (<300)
[2022-05-02 18:47] LABS: Opiate Screen,Urine Negative ng/ml (<300); Phencyclidine Screen,Urine Negative ng/ml (<25)
== END ==
PROVIDERS: PCP Nurse Practitioner Family; Visit Provider Nurse Practitioner Family
DX: Z79.899 Other long term (current) drug therapy (principal)
CPT/HCPCS: 80305

== ENCOUNTER → 2022-09-28 11:00 | Outpatient (CLI) | payer MEDICARE, OTHER, SELFPAY | PROVIDERS: PCP Nurse Practitioner Family; Visit Provider Nurse Practitioner Family | DX: R31.9 Hematuria, unspecified (principal) | CPT/HCPCS: 87086 ==

== ENCOUNTER → 2022-12-27 10:45 | Outpatient (CLI) | payer MEDICARE, OTHER, SELFPAY ==
[2022-12-27 14:23] LABS: Opiate Screen,Urine Negative ng/ml (<300)
[2022-12-27 14:24] LABS: Phencyclidine Screen,Urine Negative ng/ml (<25)
[2022-12-27 14:25] LABS: Amphetamine/Metha Screen,Urine Negative ng/ml (<1000)
[2022-12-27 14:26] LABS: Barbiturates Screen,Urine Negative ng/ml (<200); Benzodiazepines Screen,Urine Positive ng/ml (<200)
[2022-12-27 14:29] LABS: Cannabinoid Screen,Urine Negative ng/ml (<50)
[2022-12-27 14:30] LABS: Cocaine Screen,Urine Negative ng/ml (<300); Methadone Screen,Urine Negative ng/ml (<300)
== END ==
PROVIDERS: PCP Nurse Practitioner Family; Visit Provider Nurse Practitioner Family
DX: Z79.899 Other long term (current) drug therapy (principal)
CPT/HCPCS: 80305

== ENCOUNTER → 2023-01-03 08:15 | Outpatient (CLI) | payer MEDICARE, OTHER, SELFPAY ==
[2023-01-03 08:52] LABS: Basophils # 0.1 K/mm3 (0-0.2); Basophils % 0.8 % (0.1-2.0); Eosinophils # 0.4 K/mm3 (0.0-0.4); Eosinophils % 3.7 % (0.1-12.0); Hematocrit 45.5 % (42.0-52.0); Hemoglobin 14.8 g/dL (14.1-18.0); Lymphocytes # 2.6 K/mm3 (0.7-4.5); Lymphocytes % 21.8 % (10-50); Mean Corpuscular HGB Conc 32.4 g/dL (31.8-35.4); Mean Corpuscular Hemoglobin 33.4 pg (27.0-31.2); Mean Corpuscular Volume 102.9 fl (80-94); Mean Platelet Volume 10.5 fl (7.4-10.4); Monocytes % 8.2 % (1.7-9.3); Neutrophils # 7.8 K/mm3 (1.8-7.8); Neutrophils % 65.5 % (37.0-80.0); Platelet Count 209 K/mm3 (142-424); Red Blood Count 4.42 M/mm3 (4.60-6.20); Red Cell Distribution Width 12.4 % (11.5-17.5); White Blood Count 11.9 K/mm3 (4.8-10.8)
[2023-01-03 09:14] LABS: Alanine Aminotransferase 49 U/L (12-78); Albumin Level 4.1 g/dl (3.5-5.0); Albumin/Globulin Ratio 1.6 (1.1-1.8); Alkaline Phosphatase 87 U/L (38-126); Anion Gap 18.3 mEq/L (5-15); Aspartate Amino Transferase 33 U/L (17-59); Bilirubin,Total 0.3 mg/dl (0.2-1.3); Blood Urea Nitrogen 23 mg/dl (9-20); Calcium 9.2 mg/dl (8.4-10.2); Carbon Dioxide 27 mmol/L (22.0-30.0); Chloride 100 mmol/L (98-107); Chol/HDL Ratio 5.3 (1-3.5); Cholesterol 213 mg/dl (140-200); Estimated Glomerular Filt Rate 44 ml/min (>60); GFR (African American) 53 ML/MIN (>60); Globulin 2.6 g/dL (1.3-3.2); Glucose 106 mg/dl (74-100); HDL Cholesterol 40 mg/dl (40-60); Potassium 5.3 mmoL/L (3.5-5.1); Sodium 140 mmol/L (136-145); Total Protein,Serum 6.7 g/dl (6.3-8.2); Triglycerides 229 mg/dl (30-150); VLDL Cholesterol 46 mg/dL (0-40)
[2023-01-03 09:26] LABS: Direct LDL Cholesterol 142.58 mg/dL (100-129)
[2023-01-03 09:31] LABS: Triiodothryronine (T3) Uptake 32 % (23.5-40.5)
[2023-01-03 09:32] LABS: 25-OH Vitamin D, Total 32.2 ng/mL (30-100)
[2023-01-03 10:29] LABS: Free Thyroxine Index 2.4 ug/dL (5.93-13.13); T4 (Thyroxine) 7.6 ug/dl (5.53-11.0)
== END ==
PROVIDERS: PCP Nurse Practitioner Family; Visit Provider Nurse Practitioner Family
DX: I10 Essential (primary) hypertension (principal); E55.9 Vitamin D deficiency, unspecified; Z79.899 Other long term (current) drug therapy
CPT/HCPCS: 36415; 80053; 80061; 82306; 84436; 84443; 84479; 85025

== ENCOUNTER → 2023-04-29 10:26 | Outpatient (CLI) | payer MEDICARE, OTHER, SELFPAY ==
--- NOTE | 2023-04-29 10:30 | XR_ITS ---
FINAL REPORT CLINICAL HISTORY: R Hip pain COMPARISON: None FINDINGS: RIGHT HIP Two views of the right hip demonstrate no acute fracture or dislocation. There are mild degenerative changes. The visualized bony structures are well aligned. There is a 17 mm lytic area in the right femoral head which may represent cyst or mass. No soft tissue abnormality is seen. IMPRESSION: 17 mm lytic area right femoral head. Recommend MRI without and with contrast for further evaluation. Reviewed, Interpreted and Dictated by Arjun Lozoya III, MD Transcribed by Tereza Jimenez Authenticated and [facility]
== END ==
PROVIDERS: PCP Nurse Practitioner Family; Visit Provider Nurse Practitioner Family
DX: M25.551 Pain in right hip (principal)
CPT/HCPCS: 73502

== ENCOUNTER → 2023-05-20 09:35 | Outpatient (CLI) | payer MEDICARE, OTHER, SELFPAY ==
[2023-05-20 10:18] LABS: Blood Urea Nitrogen 32 mg/dl (9-20); Estimated Glomerular Filt Rate 51 ml/min (>60); GFR (African American) 62 ML/MIN (>60)
== END ==
PROVIDERS: PCP Emergency Medicine; Visit Provider Nurse Practitioner Family
DX: M25.551 Pain in right hip (principal)
CPT/HCPCS: 36415; 82565; 84520

== ENCOUNTER → 2023-06-14 13:37 | Outpatient (CLI) | payer MEDICARE, OTHER, SELFPAY ==
--- NOTE | 2023-06-14 13:37 | MR_ITS ---
FINAL REPORT CLINICAL HISTORY: r/o cyst or mass on right hip 19 ml prohance FINDINGS: Multiplanar MR imaging of the pelvis and hips was performed without and with contrast with attention to the right hip. There is serpiginous linear signal at the base of the femoral heads bilaterally. Additional areas of linear signal are seen in the more superior right femoral head and in the medial right femoral neck. On the postcontrast images, there is mild contrast-enhancement of the right femoral head and neck. There is mild bone marrow edema in the right femoral head and neck. A linear area of decreased signal is seen in the right ischium. A small right hip joint effusion is noted. No bony mass is identified. The musculature is intact. IMPRESSION: Unusual signal abnormalities involving the bilateral femoral heads right worse than left and the right ischium. The appearance is most worrisome for insufficiency fractures. Unusual osteonecrosis is felt less likely but it is not excluded. No bony mass identified. Authenticated and [facility]
== END ==
PROVIDERS: PCP Nurse Practitioner Family; Visit Provider Nurse Practitioner Family
DX: M25.551 Pain in right hip (principal)
CPT/HCPCS: 73723; A9576

== ENCOUNTER → 2023-06-28 15:23 | Outpatient (CLI) | payer MEDICARE, OTHER, SELFPAY ==
[2023-06-28 14:52] LABS: Basophils # 0.1 K/mm3 (0-0.2); Basophils % 0.8 % (0.1-2.0); Eosinophils # 0.4 K/mm3 (0.0-0.4); Eosinophils % 3.8 % (0.1-12.0); Hematocrit 44.7 % (42.0-52.0); Hemoglobin 15.1 g/dL (14.1-18.0); Lymphocytes # 1.8 K/mm3 (0.7-4.5); Lymphocytes % 17.9 % (10-50); Mean Corpuscular HGB Conc 33.8 g/dL (31.8-35.4); Mean Corpuscular Hemoglobin 33.9 pg (27.0-31.2); Mean Corpuscular Volume 100.3 fl (80-94); Monocytes # 0.9 K/mm3 (0.1-1.0); Monocytes % 8.7 % (1.7-9.3); Neutrophils % 68.8 % (37.0-80.0); Platelet Count 251 K/mm3 (142-424); Red Blood Count 4.46 M/mm3 (4.60-6.20); Red Cell Distribution Width 13.2 % (11.5-17.5); White Blood Count 10.1 K/mm3 (4.8-10.8)
[2023-06-28 15:23] LABS: Alanine Aminotransferase 34 U/L (12-78); Albumin Level 4.5 g/dl (3.5-5.0); Albumin/Globulin Ratio 1.4 (1.1-1.8); Alkaline Phosphatase 94 U/L (38-126); Anion Gap 18.3 mEq/L (5-15); Aspartate Amino Transferase 35 U/L (17-59); Bilirubin,Total 0.3 mg/dl (0.2-1.3); Blood Urea Nitrogen 24 mg/dl (9-20); Calcium 9.4 mg/dl (8.4-10.2); Carbon Dioxide 23 mmol/L (22.0-30.0); Chloride 104 mmol/L (98-107); Chol/HDL Ratio 5.7 (1-3.5); Cholesterol 222 mg/dl (140-200); Estimated Glomerular Filt Rate 61 ml/min (>60); GFR (African American) 74 ML/MIN (>60); Globulin 3.3 g/dL (1.3-3.2); Glucose 102 mg/dl (74-100); HDL Cholesterol 39 mg/dl (40-60); Potassium 5.3 mmoL/L (3.5-5.1); Sodium 140 mmol/L (136-145); Total Protein,Serum 7.8 g/dl (6.3-8.2); Triglycerides 163 mg/dl (30-150); VLDL Cholesterol 33 mg/dL (0-40)
[2023-06-28 15:34] LABS: Direct LDL Cholesterol 148.43 mg/dL (100-129)
[2023-06-28 15:38] LABS: 25-OH Vitamin D, Total 26.5 ng/mL (30-100)
[2023-06-28 15:55] LABS: Prostate Specific Ag Screen 0.3 ng/ml (0.0-4.0); Thyroid Stimulating Hormone 2.97 uIU/mL (0.465-4.68)
[2023-06-28 19:34] LABS: Hemoglobin A1C 5.6 % (4.0-6.0)
== END ==
PROVIDERS: PCP Nurse Practitioner Family; Visit Provider Nurse Practitioner Family
DX: I10 Essential (primary) hypertension (principal); Z85.46 Personal history of malignant neoplasm of prostate; E55.9 Vitamin D deficiency, unspecified; R73.03 Prediabetes; F41.9 Anxiety disorder, unspecified; Z12.5 Encounter for screening for malignant neoplasm of prostate
CPT/HCPCS: 80053; 80061; 82306; 83036; 84443; 85025; G0103

== ENCOUNTER → 2023-07-01 10:17 | Outpatient (CLI) | payer MEDICARE, OTHER, SELFPAY ==
--- NOTE | 2023-07-01 10:26 | XR_ITS ---
FINAL REPORT CLINICAL HISTORY: foot pain and swelling FINDINGS: LEFT FOOT Three views of the left foot demonstrate no acute fracture or dislocation. The visualized joint spaces are normally aligned. The soft tissues are unremarkable. IMPRESSION: No acute bony abnormality. Reviewed, Interpreted and Dictated by Luis Alberto Vazquez MD Transcribed by Radha Wang Authenticated and [facility]
== END ==
PROVIDERS: PCP Nurse Practitioner Family; Visit Provider Nurse Practitioner Family
DX: M79.672 Pain in left foot (principal)
CPT/HCPCS: 73630

== ENCOUNTER → 2023-07-25 11:13 | Outpatient (CLI) | payer MEDICARE, OTHER, SELFPAY ==
--- NOTE | 2023-07-25 11:14 | US_ITS ---
FINAL REPORT CLINICAL HISTORY: decreased pulses, current smoker, HTN, HLD, left black great toe, bilateral claudication, bilateral rest pain COMPARISON: None FINDINGS: ANKLE-BRACHIAL PRESSURE INDICES Pressure indices are as follows: RIGHT LOWER EXTREMITY: Ankle-brachial pressure index: 0.8 Comments: Mild vascular disease LEFT LOWER EXTREMITY: Ankle-brachial pressure index: 0.25 Comments: Severe vascular disease. IMPRESSION: Mild vascular disease in the right lower extremity. Severe vascular disease in the left lower extremity. Consider correlation with CT angiogram or catheter angiogram. Reviewed, Interpreted and Dictated by Arjun Lozoya III, MD Transcribed by Tereza Jimenez Authenticated and [facility]
== END ==
PROVIDERS: PCP Nurse Practitioner Family; Visit Provider Podiatrist
DX: R09.89 Other specified symptoms and signs involving the circulatory and respiratory systems (principal)
CPT/HCPCS: 93923

== ENCOUNTER 2023-08-08 14:31 | Observation (INO) | payer MEDICARE, OTHER, SELFPAY ==
[2023-08-08] VITALS (18 sets, daily range): BP systolic 66–217; BP diastolic 49–98; PULSE 89–123; RESP 16–20; TEMP 36.6–36.9; O2SAT 93–100; BMI 32.4
--- NOTE | 2023-08-08 07:18 | IR_ITS ---
APPROVED REPORT Patient Location: Outpatient PROCEDURES Right femoral arterial access Retrograde right femoral artery angiogram Bilateral selective renal angiography Catheter placement in the left common iliac artery Left common iliac artery antegrade angiogram Left femoral arterial access Left retrograde femoral angiogram Intravascular lithotripsy to the left common and external iliac artery Bare-metal stent deployment to the left common iliac artery Bare-metal stent deployment to the left external iliac artery Mechanical thrombectomy to the left femoral artery Mechanical thrombectomy to the left profunda femoris artery Bare-metal stent deployment to the right external iliac artery Catheter placement in the left external iliac artery Left external iliac artery antegrade angiogram with unilateral runoff to the left foot INDICATION VIJAYA 0.8 on the right 0.2 in the left, Occluded left common and external iliac artery, Extensive thrombosis in the left femoral artery, Atherosclerosis in the right external iliac artery, Chronic renal failure creatinine 1.5, Hypertension suspect renovascular hypertension with renal artery stenosis Informed consent was obtained prior to the procedure. COMPLICATIONS None Estimated Blood Loss: Less than 10 mls TECHNIQUE 1% lidocaine used anesthetize the right groin the right femoral artery was accessed via the Salinger technique and a 5 Cameroonian sheath is placed in the right femoral artery. The JR4 catheter was used to perform bilateral selective renal angiography. Same catheter was placed in the origin of the left common iliac artery and antegrade angiography was performed. Following this 1% lidocaine was used to anesthetize the left groin and the left femoral artery was accessed via the Salinger technique. A 6 Cameroonian sheath is placed in the left femoral artery and retrograde angiography was performed. Therapeutic heparin was administered giving a therapeutic ACT. An advantage wire was used to push through the occlusion in the left common iliac and external iliac artery. An 8 mm x 57 mm balloon mounted bare-metal stent was deployed at 14 jacinto reducing the stenosis. An additional 8 mm x 17 mm EV 3 stent was placed proximal to this and then deployed at 18 jacinto. An 8 mm x 60 mm self-expanding stent was placed distal to the 57 mm stent and then deployed in the left external iliac artery. At this point a rim catheter was placed in the left common iliac artery and then under fluoroscopic guidance was placed into the left femoral artery sheath and pulled out and then using a floss technique the wire was pulled through the sheath. The right groin 5 Cameroonian sheath was upsized to a 8 Cameroonian sheath. An 8 Cameroonian destination sheath was then placed under fluoroscopic guidance into the left external iliac artery. A penumbra CAT 8 was then advanced and a large thrombus was extracted from the left common femoral artery restoring flow. The catheter was then placed into the left profunda femoris artery and thrombus was also removed. Following this an 8 mm x 60 mm self-expanding stent was placed in the right external iliac artery after was identified the vessel was occluded in a retrograde manner. The self-expanding stent was not adequately keeping the stenotic area reduced therefore an 8 mm x 17 mm balloon mounted bare-metal stent was placed in the right external iliac artery and deployed further reducing the stenosis and keeping the vessel open. Following this antegrade angiography with unilateral runoff to the left foot was performed. After wide patency was identified the sheath was pulled back with plans to exchange for a short Cameroonian sheath however there was an inadvertent loss of the wire therefore manual pressure was held on the right groin. The left femoral sheath was also removed and manual pressure was used to achieve bilateral hemostasis. After good hemostasis was achieved patient was transferred to postop holding in stable condition for further postoperative care ANGIOGRAPHIC RESULTS Right renal artery singular normal Left renal artery singular normal Infrarenal abdominal aorta widely patent Right common iliac arteries patent Right external iliac artery is subtotally occluded Right internal iliac arteries patent Right common femoral artery has 30% diffuse stenoses Left common internal and external iliac arteries are entirely occluded Left common femoral artery has a 50% stenosis Left profunda femoris left SFA and left popliteal arteries are widely patent There is two-vessel runoff below the knee on the left side following revascularization Extensive thrombus in the left femoral artery IMPRESSION Initially occluded left common internal and external iliac artery Successful intravascular lithotripsy to the left common iliac artery Successful stenting of the left common iliac artery 100% stenosis reduced to 0% Successful stenting of the left external iliac artery 100% occlusion reduced to 0% Persistent moderate stenosis of the left common femoral artery Widely patent left SFA and left popliteal artery with three-vessel runoff below the knee Thrombus in the left profunda femoris artery with normal flow Successful stenting of the right external iliac artery severe disease with subtotal occlusion reduced to 0% with 2 stents as described above Successful mechanical thrombectomy to the left femoral artery large thrombectomy reduced to 0% PLAN 1. Dual antiplatelet therapy 2. IV fluids overnight 3. Check chemistry panel in the morning 4. LDL less than 55 to be achieved with high intensity statin 5. Avoidance of tobacco products 6. Cardiac rehabilitation 7. Risk factor modification Electronically signed by : Lionel St MD 08/08/2023 16:55:38
[2023-08-08 09:32] LABS: Basophils # 0.1 K/mm3 (0-0.2); Basophils % 0.9 % (0.1-2.0); Eosinophils # 0.5 K/mm3 (0.0-0.4); Eosinophils % 4.6 % (0.1-12.0); Hematocrit 44.3 % (42.0-52.0); Hemoglobin 14.9 g/dL (14.1-18.0); Lymphocytes # 2.2 K/mm3 (0.7-4.5); Mean Corpuscular HGB Conc 33.7 g/dL (31.8-35.4); Mean Corpuscular Hemoglobin 33.4 pg (27.0-31.2); Mean Corpuscular Volume 99.1 fl (80-94); Mean Platelet Volume 11.1 fl (7.4-10.4); Monocytes # 0.9 K/mm3 (0.1-1.0); Neutrophils # 7.6 K/mm3 (1.8-7.8); Neutrophils % 67.5 % (37.0-80.0); Platelet Count 255 K/mm3 (142-424); Red Blood Count 4.48 M/mm3 (4.60-6.20); Red Cell Distribution Width 13.5 % (11.5-17.5); White Blood Count 11.3 K/mm3 (4.8-10.8)
[2023-08-08 09:38] LABS: Chloride 104 mmol/L (98-107); Sodium 137 mmol/L (136-145)
[2023-08-08 09:39] LABS: Potassium 5.2 mmoL/L (3.5-5.1)
[2023-08-08 09:41] LABS: Blood Urea Nitrogen 25 mg/dl (9-20); Creatinine Clearance Estimated 68 mL/min (50-200); Estimated Glomerular Filt Rate 47 ml/min (>60); GFR (African American) 57 ML/MIN (>60)
[2023-08-08 09:42] LABS: Anion Gap 14.2 mEq/L (5-15); Calcium 8.9 mg/dl (8.4-10.2); Carbon Dioxide 24 mmol/L (22.0-30.0); Glucose 98 mg/dl (74-100)
[2023-08-08] MEDS: LIDOCAINE 1% 10ML MDV 20 ML IJ (10:25)
[2023-08-08] MEDS: HEPARIN 1,000 UNITS/500ML NS (CATH LAB) 3000 UNIT IV (10:25)
[2023-08-08] MEDS: 0.9 % SODIUM CHLORIDE 500 ML 25 ML IV (10:25)
[2023-08-08] MEDS: NITROGLYCERIN 800MCG/8ML SYR (CATH LAB) 800 MCG IA (10:26)
[2023-08-08] MEDS: diphenhydrAMINE 50MG/ML VIAL 50 MG IV (10:26)
[2023-08-08] MEDS: HEPARIN 1,000 UNITS/ML 10ML VIAL (CATH LAB) 10000 UNIT IV ×3 (11:00→19:45)
[2023-08-08] MEDS: PROMETHAZINE HCL 25MG/ML 1ML VIAL 25 MG IV (11:21)
[2023-08-08] MEDS: CLOPIDOGREL 300MG TABLET 300 MG PO (13:00)
[2023-08-08] MEDS: ASPIRIN 325MG TABLET 325 MG PO (13:00)
[2023-08-08] MEDS: MIDAZOLAM HCL 1MG/1ML 5ML VIAL 1 MG IV (13:04)
[2023-08-08] MEDS: FENTANYL 100MCG/2ML VIAL 50 MCG IV (13:04)
[2023-08-08] MEDS: PROTAMINE SULFATE 50MG/5ML VIAL (CATH LAB) 20 MG IV (13:07)
--- NOTE | 2023-08-08 14:30 | PC.NURSE ---
arrived by sanjuanitaer from laboratory technical specialist
--- NOTE | 2023-08-08 15:19 | CT_ITS ---
FINAL REPORT TECHNIQUE: Axial images through the abdomen and pelvis were performed without contrast. This study was performed with techniques to keep radiation doses as low as reasonably achievable, (ALARA). Individualized dose reduction techniques using automated exposure control or adjustment of mA and/or kV according to the patient's size were employed. CLINICAL HISTORY: low bp, suspected bleeding post cath COMPARISON: 06/14/2023 FINDINGS: Abdomen: There is atelectasis or scarring at the lung bases. There is mild fatty infiltration of the liver. There is a gallstone within a contracted gallbladder. The spleen, pancreas, and adrenals are unremarkable. There are benign-appearing cysts in both kidneys measuring up to 2.8 x 2.2 cm. Pelvis: The urinary bladder is distended. The appendix is normal. There is significant subcutaneous soft tissue stranding in the inguinal regions bilaterally. No definite hematoma is seen. The scrotum is not completely visualized. There is some high density into the left side of the scrotum so there may be some degree of hemorrhage into the scrotum. Bilateral iliac artery stents are present. IMPRESSION: Bilateral inguinal region subcutaneous soft tissue stranding. Some high density into the left side of an incompletely visualized scrotum, possible hemorrhage. Fatty liver. Benign-appearing renal cysts. Reviewed, Interpreted and Dictated by Luis Alberto Vazquez MD Transcribed by Tereza Jimenez Authenticated and . [facility]
[2023-08-08 16:09] LABS: Basophils # 0.1 K/mm3 (0-0.2); Basophils % 0.5 % (0.1-2.0); Eosinophils # 0.1 K/mm3 (0.0-0.4); Eosinophils % 0.4 % (0.1-12.0); Hematocrit 37.4 % (42.0-52.0); Lymphocytes # 1.4 K/mm3 (0.7-4.5); Lymphocytes % 7.4 % (10-50); Mean Corpuscular HGB Conc 32.9 g/dL (31.8-35.4); Mean Corpuscular Hemoglobin 33.8 pg (27.0-31.2); Mean Corpuscular Volume 102.8 fl (80-94); Mean Platelet Volume 10.3 fl (7.4-10.4); Monocytes # 1.1 K/mm3 (0.1-1.0); Neutrophils # 15.6 K/mm3 (1.8-7.8); Neutrophils % 85.7 % (37.0-80.0); Platelet Count 195 K/mm3 (142-424); Red Blood Count 3.64 M/mm3 (4.60-6.20); Red Cell Distribution Width 13.4 % (11.5-17.5); White Blood Count 18.2 K/mm3 (4.8-10.8)
[2023-08-08 16:12] LABS: MANUAL DIFFERENTIAL MANUAL DIFFERENTIAL (MANUAL DIFF)
[2023-08-08 16:27] LABS: Lymphocytes % 10 % (10-50); Monocytes % 2 % (2-9); Neutrophils % 88 % (42-76); Platelet Estimate Normal; RBC Morphology Normal; Total Cells Counted 100
[2023-08-08 16:39] LABS: Hemoglobin 12.3 g/dL (14.1-18.0)
[2023-08-08] MEDS: IOHEXOL-240 100ML BOTTLE 240 ML IV (17:17)
--- NOTE | 2023-08-08 17:48 | P.HP_ITS ---
History of Present Illness *Admission Date: 08/08/23 *Reason for visit:: PAD *History of present illness: Patient is a 62-year-old male with past medical history of prostate cancer PAD, CAD who presents to the hospital for peripheral vascular disease catheterization procedure.. Patient had stent placement and left iliac artery. Patient was admitted to the hospital for further observation. Patient denied chest pain shortness of breath nausea vomiting diarrhea constipation dysuria fevers and chills at the time of my evaluation. On patient's arrival on the floor patient has not been able to make urine, patient is having some urinary retention. [facility] Disclaimer: The information contained in this section may have been updated after the patient was seen, as this information can be updated by other users. Medical History (Updated 08/08/23 @ 17:50 by Robert Gonzalez MD) Anxiety Hypothyroidism Intermittent claudication Social History Smoking Status: Current every day smoker tobacco type: cigarettes packs per day: 1 alcohol intake: never current occupational status: disabled Travel in the last 8 weeks: None household members: friend(s) housing: house Review of Systems Review of Systems Review of systems (narrative): as per [facility] Meds Home Medications and Allergies Home Medications Medication Instructions Recorded Confirmed Type albuterol sulfate 90 mcg/actuation 1 inh inhalation QID PRN shortness 11/28/20 08/08/23 Rx aerosol inhaler of breath or wheezing #8.5 grams umeclidinium 62.5 mcg-vilanterol 1 inh inhalation DAILY #60 ea 11/28/20 08/08/23 Rx 25 mcg/actuation powdr for inhalation (Anoro Ellipta) naproxen 500 mg tablet 500 mg PO BID #30 tabs 09/26/21 08/08/23 Rx varenicline 0.5 mg (11)-1 mg (42) See Rx Instructions PO PER PKG DIR 04/10/23 08/08/23 Rx tablets in a dose pack (Chantix #53 tabs Starting Month Box) diazepam 10 mg tablet 10 mg PO BID PRN anxiety #60 tabs 06/28/23 08/08/23 Rx atorvastatin 20 mg tablet 20 mg PO DAILY 08/08/23 08/08/23 History atorvastatin 20 mg tablet 20 mg PO DAILY 08/08/23 08/08/23 History cetirizine 10 mg tablet 10 mg PO DAILY 08/08/23 08/08/23 History cetirizine 10 mg tablet 10 mg PO DAILY 08/08/23 08/08/23 History cyclobenzaprine 10 mg tablet 10 mg PO TID 08/08/23 08/08/23 History cyclobenzaprine 10 mg tablet 10 mg PO TIDP PRN MUSCLE SPASMS 08/08/23 08/08/23 History ergocalciferol (vitamin D2) 1,250 1,250 mcg PO WEEKLY 08/08/23 08/08/23 History mcg (50,000 unit) capsule ergocalciferol (vitamin D2) 1,250 50,000 unit PO WEEKLY 08/08/23 08/08/23 History mcg (50,000 unit) capsule fluticasone propionate 50 1 spray intranasal DAILY 08/08/23 08/08/23 History mcg/actuation nasal spray,suspension fluticasone propionate 50 1 spray intranasal DAILY 08/08/23 08/08/23 History mcg/actuation nasal spray,suspension hydrochlorothiazide 12.5 mg capsule 12.5 mg PO DAILY 08/08/23 08/08/23 History hydrochlorothiazide 12.5 mg capsule 12.5 mg PO DAILY 08/08/23 08/08/23 History levothyroxine 137 mcg tablet 137 mcg PO DAILY 08/08/23 08/08/23 History levothyroxine 137 mcg tablet 137 mcg PO DAILY 08/08/23 08/08/23 History lisinopril 20 mg tablet 20 mg PO BID 08/08/23 08/08/23 History metoprolol tartrate 100 mg tablet 100 mg PO BID 08/08/23 08/08/23 History metoprolol tartrate 100 mg tablet 100 mg PO BID 08/08/23 08/08/23 History omeprazole 40 mg capsule,delayed 40 mg PO DAILY 08/08/23 08/08/23 History release New Prescriptions to Start Prescriptions: Allergies Allergy/AdvReac Type Severity Reaction Status Date / Time codeine [CODEINE] Allergy Unknown Unknown Verified 07/25/23 12:37 allergy reaction Exam Data for Last 24 hours Vital signs and Labs for Last 24 Hours: Temp Pulse Resp BP Pulse Ox O2 Del Method 98.4 F 90 18 123/88 96 Room Air 08/08/23 08:51 08/08/23 16:04 08/08/23 13:55 08/08/23 13:55 08/08/23 13:55 08/08/23 17:00 Laboratory Results - last 24 hr 08/08/23 08:50: WBC 11.3 H, RBC 4.48 L, Hgb 14.9, Hct 44.3, MCV 99.1 H, MCH 33.4 H, MCHC 33.7, RDW 13.5, Plt Count 255, MPV 11.1 H, Neut % (Auto) 67.5, Lymph % (Auto) 19.0, [place] % (Auto) 8.0, Eos % (Auto) 4.6, Baso % (Auto) 0.9, Neut # (Auto) 7.6, Lymph # (Auto) 2.2, [place] # (Auto) 0.9, Eos # (Auto) 0.5 H, Baso # (Auto) 0.1, Sodium 137, Potassium 5.2 H, Chloride 104, Carbon Dioxide 24, Anion Gap 14.2, BUN 25 H, Creatinine 1.50 H, Estimated Creat Clear 68, Estimated GFR 47 L, Est GFR ( Amer) 57 L, Glucose 98, Calcium 8.9 08/08/23 15:40: WBC 18.2 H D, RBC 3.64 L, Hgb 12.3 L D, Hct 37.4 L, MCV 102.8 H, MCH 33.8 H, MCHC 32.9, RDW 13.4, Plt Count 195, MPV 10.3, Neut % (Auto) 85.7 H, Lymph % (Auto) 7.4 L, [place] % (Auto) 6.0, Eos % (Auto) 0.4, Baso % (Auto) 0.5, Neut # (Auto) 15.6 H, Lymph # (Auto) 1.4, [place] # (Auto) 1.1 H, Eos # (Auto) 0.1, Baso # (Auto) 0.1, Total Counted 100, Neutrophils % (Manual) 88 H, Lymphocytes % (Manual) 10, Monocytes % (Manual) 2, Platelet Estimate Normal, RBC Morphology Normal, Blood Type O Positive, Antibody Screen Negative I & O for Last 24 hours: Intake & Output 08/05/23 08/06/23 08/07/2321/23 23:59 23:59 23:59 23:59 Weight 93.894 kg Constitutional Constitutional: no acute distress *Routine HEENT Exam Head: Present normocephalic Eye: Present EOMI and PERRL ENT: Present mucous membranes moist *Routine Neck Exam Neck: Present supple; Absent lymphadenopathy *Routine Respiratory Exam Respiratory: Present CTA bilaterally *Routine Cardiovascular Exam Cardiovascular: Present RRR *Routine Abdominal Exam Abdominal: Present soft and normoactive bowel sounds; Absent tenderness *Routine Rectal Exam Rectal:: deferred *Routine Genitalia Exam Genitalia:: deferred *Routine Extremities Exam Extremities: Present edema; Absent cyanosis or clubbing Comments: left leg appears bruised and mottled *Routine Skin Exam Skin: Present warm; Absent rash *Routine Neurological Exam Neurological: Present alert and oriented X3 Assessment and Plan *Assessment and plan (1) Urinary retention: Status: Acute Category: Medical Code(s): R33.9 - Retention of urine, unspecified (2) Hypotension: Status: Acute Category: Medical Code(s): I95.9 - Hypotension, unspecified (3) PAD (peripheral artery disease): Status: Acute Category: Medical Code(s): I73.9 - Peripheral vascular disease, unspecified (4) CAD (coronary artery disease): Status: Acute Category: Medical Code(s): I25.10 - Atherosclerotic heart disease of [place] coronary artery without angina pectoris Plan Patient is a 62-year-old male with past medical history of prostate cancer PAD, CAD who presents to the hospital for peripheral vascular disease catheterization procedure.. Patient had stent placement and left iliac artery. Patient was admitted to the hospital for further observation. Patient denied chest pain shortness of breath nausea vomiting diarrhea constipation dysuria fevers and chills at the time of my evaluation. On patient's arrival on the floor patient has not been able to make urine, patient is having some urinary retention. Assessment PAD CAD History of prostatic cancer Urinary retention Hypotension Leukocytosis likely reactive CKD stage III History of anxiety Plan Status post stenting, intervention per cardiology Start aspirin, Plavix Pain control Cardiology following Start flomax for urinary retention, difficult brennan and straight cath, will transfer for urology needs if unable to make urine IV fluid boluses for hypotension Monitor on cardiac telemetry Resume home albuterol, statin, diazepam DVT prophylaxis-heparin
[2023-08-08 18:06] LABS: POC Glucose,Bedside 104 (70-110)
--- NOTE | 2023-08-08 18:37 | PC.NURSE ---
ATTEMPTED TO OBTAIN TELEPHONE CONSENT FOR PROCEDURE. UNABLE TO GET AHOLD OF PERSON TO NOTIFY. EDGE TRIMMER MECHANIC MADE AWARE.
[2023-08-08] MEDS: HEPARIN SODIUM,PORCINE/D5W 500 ML 24 UNIT IV (19:44)
--- NOTE | 2023-08-08 19:47 | SUR.OPER ---
Spoke to Dr St on phone about patient assessment of leg, patient denies pain in leg, leg is no longer mottled and is warm, with palpable pulses to pedal and femoral, with audible with doppler. Dr St gave verbal order for lactic blood drawn, and pt/ptt, 6000 unit bolus or heparin and start pt on heparin gtt @ 1200unit/hr. Gave report to Selina on 2nd floor. PT/PTT drawn before heparin bolus.
[2023-08-08 20:09] LABS: Activated Partial Thrombo Time 25.2 seconds (22.8-30.6); INR 1.06 (0.9-1.1); Prothrombin Time 11.4 seconds (10.1-12.5)
--- NOTE | 2023-08-08 20:14 | SUR.PHASEII ---
Nurse from 2nd floor called for Cathlab RN to assess pulses to left leg. Palpable pulse to left pedal, leg warm and not mottled.
[2023-08-08 21:16] LABS: Lactic Acid 2.3 mmol/L (0.7-2.1)
[2023-08-08] MEDS: ATORVASTATIN 20MG TABLET 20 MG PO (21:51)
[2023-08-08] MEDS: ACETAMINOPHEN 325MG TAB 650 MG PO (21:56)
[2023-08-08 23:25] LABS: Reflex Lactic Add Lactic Reflex
[2023-08-09] VITALS: BP 122/77; PULSE 105; PULSE 110; RESP 18; TEMP 36.5; O2SAT 96
[2023-08-09 01:52] LABS: PTT Heparin (inpatient only) 191.6 Seconds (23.6-34.0)
--- NOTE | 2023-08-09 02:13 | PC.NURSE ---
Addendum entered by Selina Begum RN 08/09/23 03:10: Spoke to lilia from Lab who was going to call Maciel with results from Lactic Original Note: Patient was brought back from excavation laborer around 1914. At the time pulses in the bilateral feet were thready but palpable. VS were stable. manager laboratory RN bill the initial PTT and then they gave the bolus of heparin and started the heparin drip. Care was then transferred to night shift supervisor RN. RN went back to check on patient and was unable to palate pedal pulses bilaterally. RN got Doppler and attempted to locate the pulses. RN was able to locate the pedal pulses on the R, but was unable to locate it on the L. RN called scrap charger in the room and millwright supervisor. They too were unable to locate the pulse. RN called excavation laborer RNs again, they came back to bedside and palpated the pedal pulse in the L foot. They showed house mother and she was then able to feel the pulse. It was still not able to Doppler. Bilateral legs were the same color. Both were the same temperature. no signs of modeling was noted. MARI Rice came to bedside and was able to Doppler the posterior tib. MARI Rice said to watch the color and temp of the leg. As the night has progressed bilateral legs have gotten warmer and the pulses have become more palpable bilaterally
[2023-08-09 04:00] VITALS: BP 138/78; PULSE 110; PULSE 120; RESP 18; TEMP 36.7; O2SAT 95; BMI 34.3
--- NOTE | 2023-08-09 05:19 | PC.NURSE ---
After getting the patient settled early in shift the rest of the shift the patient has been doing well. Pluses remain palpable very faintly bilaterally in the feet. Patient is extremely bruised in the bilateral groin sites.
[2023-08-09] MEDS: METOPROLOL TARTRATE 100 MG 100 EACH PO (06:20)
[2023-08-09 06:35] LABS: POC Glucose,Bedside 116 (70-110)
[2023-08-09 06:42] LABS: Basophils # 0.1 K/mm3 (0-0.2); Basophils % 0.4 % (0.1-2.0); Eosinophils # 0.1 K/mm3 (0.0-0.4); Monocytes # 1.1 K/mm3 (0.1-1.0); Neutrophils # 10.3 K/mm3 (1.8-7.8); White Blood Count 13.3 K/mm3 (4.8-10.8)
[2023-08-09 06:52] LABS: Chloride 110 mmol/L (98-107)
[2023-08-09 06:53] LABS: Potassium 3.7 mmoL/L (3.5-5.1); Sodium 138 mmol/L (136-145)
[2023-08-09 06:55] LABS: Blood Urea Nitrogen 23 mg/dl (9-20); Creatinine Clearance Estimated 83 mL/min (50-200); Eosinophils % 0.5 % (0.1-12.0); Estimated Glomerular Filt Rate 56 ml/min (>60); GFR (African American) 68 ML/MIN (>60); Hematocrit 31.5 % (42.0-52.0); Lymphocytes # 1.8 K/mm3 (0.7-4.5); Lymphocytes % 13.4 % (10-50); Mean Corpuscular HGB Conc 33.9 g/dL (31.8-35.4); Mean Corpuscular Hemoglobin 33.4 pg (27.0-31.2); Mean Corpuscular Volume 98.6 fl (80-94); Monocytes % 8.2 % (1.7-9.3); Neutrophils % 77.6 % (37.0-80.0); Platelet Count 201 K/mm3 (142-424); Red Blood Count 3.19 M/mm3 (4.60-6.20); Red Cell Distribution Width 13.5 % (11.5-17.5)
[2023-08-09 06:56] LABS: Anion Gap 13.7 mEq/L (5-15); Calcium 7.8 mg/dl (8.4-10.2); Carbon Dioxide 18 mmol/L (22.0-30.0); Glucose 118 mg/dl (74-100)
[2023-08-09 06:57] LABS: Hemoglobin 10.7 g/dL (14.1-18.0)
[2023-08-09 08:00] VITALS: BP 129/74; PULSE 90; PULSE 95; RESP 18; TEMP 36.9; O2SAT 95
--- NOTE | 2023-08-09 08:28 | HMH.PHAHEP ---
[facility] Pharmacy Heparin Dosing Demographic Data Admission date:: 08/09/23 Date: 08/09/23 Time: 08:28 Allergies Allergy/AdvReac Type Severity Reaction Status Date / Time codeine [CODEINE] Allergy Unknown Unknown Verified 07/25/23 12:37 allergy reaction Height: 1.7 m Weight: 99.34 kg Indication Medication therapy:: Heparin Current Indications:: PAD, STENTING Current Active Problems (Updated 08/09/23 @ 10:20 by Mildred Huggins APRN) CAD (coronary artery disease) (Acute) PAD (peripheral artery disease) (Acute) Hypotension (Acute) Urinary retention (Acute) CVA?: No Bleeding problem?: No Kidney disease?: No [place]?: No Desired PTT range:: 50-75 seconds Labs Anticoagulation Lab Results:: 08/08/23 08/08/23 08/09/23 08:50 15:40 06:29 Hgb 14.9 12.3 L D 10.7 L D Hct 44.3 37.4 L 31.5 L Plt Count 255 195 201 Monitoring Dose Monitor 1: Date: 08/08/23 Time: 19:33 PTT Result:: 25.2 Infusion Rate:: HEPARIN 1200 UNITS/HR (24 ML/HR), 6000 UNIT BOLUS, PLT 195K Dose Monitor 2: Date: 08/09/23 Time: 01:20 PTT Result:: 191.6 Infusion Rate:: HEPARIN 900 UNITS/HR (18 ML/HR) Dose Monitor 3: Date: 08/09/23 Time: 08:02 PTT Result:: 66.1 Infusion Rate:: CONTINUE HEPARIN 900 UNITS/HR (18 ML/HR) Core Measures Is INR > or = 2 at discharge?: No Most Recent Labs:: Laboratory Results - last 24 hr 08/08/23 08:50: WBC 11.3 H, RBC 4.48 L, Hgb 14.9, Hct 44.3, MCV 99.1 H, MCH 33.4 H, MCHC 33.7, RDW 13.5, Plt Count 255, MPV 11.1 H, Neut % (Auto) 67.5, Lymph % (Auto) 19.0, [place] % (Auto) 8.0, Eos % (Auto) 4.6, Baso % (Auto) 0.9, Neut # (Auto) 7.6, Lymph # (Auto) 2.2, [place] # (Auto) 0.9, Eos # (Auto) 0.5 H, Baso # (Auto) 0.1, Sodium 137, Potassium 5.2 H, Chloride 104, Carbon Dioxide 24, Anion Gap 14.2, BUN 25 H, Creatinine 1.50 H, Estimated Creat Clear 68, Estimated GFR 47 L, Est GFR ( Amer) 57 L, Glucose 98, Calcium 8.9, Blood Type Confirm O Positive 08/08/23 15:40: WBC 18.2 H D, RBC 3.64 L, Hgb 12.3 L D, Hct 37.4 L, MCV 102.8 H, MCH 33.8 H, MCHC 32.9, RDW 13.4, Plt Count 195, MPV 10.3, Neut % (Auto) 85.7 H, Lymph % (Auto) 7.4 L, [place] % (Auto) 6.0, Eos % (Auto) 0.4, Baso % (Auto) 0.5, Neut # (Auto) 15.6 H, Lymph # (Auto) 1.4, [place] # (Auto) 1.1 H, Eos # (Auto) 0.1, Baso # (Auto) 0.1, Total Counted 100, Neutrophils % (Manual) 88 H, Lymphocytes % (Manual) 10, Monocytes % (Manual) 2, Platelet Estimate Normal, RBC Morphology Normal, Blood Type O Positive, Antibody Screen Negative, Crossmatch ([facility]) See Detail 08/08/23 17:57: POC Glucose 104 08/08/23 19:33: PT 11.4, INR 1.06, APTT 25.2, Lactate 2.3 H 08/08/23 23:40: Lactate 1.0 08/09/23 01:20: APTT 191.6 H* 08/09/23 06:28: POC Glucose 116 H 08/09/23 06:29: WBC 13.3 H D, RBC 3.19 L, Hgb 10.7 L D, Hct 31.5 L, MCV 98.6 H, MCH 33.4 H, MCHC 33.9, RDW 13.5, Plt Count 201, MPV 11.0 H, Neut % (Auto) 77.6, Lymph % (Auto) 13.4, [place] % (Auto) 8.2, Eos % (Auto) 0.5, Baso % (Auto) 0.4, Neut # (Auto) 10.3 H, Lymph # (Auto) 1.8, [place] # (Auto) 1.1 H, Eos # (Auto) 0.1, Baso # (Auto) 0.1, Sodium 138, Potassium 3.7 D, Chloride 110 H, Carbon Dioxide 18 L, Anion Gap 13.7, BUN 23 H, Creatinine 1.30 H, Estimated Creat Clear 83, Estimated GFR 56 L, Est GFR ( Amer) 68, Glucose 118 H D, Calcium 7.8 L If INR was < than 2.0 why was therapy stopped?: D/C Were Heparin and Warfarin started on the same day?: No If not, why?: D/C
--- NOTE | 2023-08-09 08:54 | US_ITS ---
FINAL REPORT TECHNIQUE: Ultrasound images of the testicles were obtained bilaterally. Color Doppler images were obtained. CLINICAL HISTORY: scrotal edema FINDINGS: The right testicle measures 3.7 x 2.5 x 2.5 cm. The left testicle measures 3.7 x 2.4 x 2.6 cm. Arterial flow is identified bilaterally. No intratesticular masses are identified. There is small epididymal cyst bilaterally. There is a lobular complex, predominantly anechoic focus adjacent to the lower pole of the left testicle measuring 2.7 x 1.3 cm. It appears to be adjacent to the testicle, significance is unclear. IMPRESSION: No evidence of torsion. Bilateral epididymal cysts. Complex fluid collection adjacent to the lower pole of the left testicle could represent a resolving hematoma. 3-month follow-up ultrasound is recommended. Reviewed, Interpreted and Dictated by Luis Alberto Vazquez MD Transcribed by Sissy Jansen Authenticated and [facility]
[2023-08-09 09:19] LABS: PTT Heparin (inpatient only) 66.1 Seconds (23.6-34.0)
[2023-08-09] MEDS: METOPROLOL TARTRATE 50MG TABLET 100 MG PO (09:34)
[2023-08-09] MEDS: CLOPIDOGREL 75MG TAB 75 MG PO (09:34)
[2023-08-09] MEDS: LORATADINE 10MG TABLET 10 MG PO (09:34)
[2023-08-09] MEDS: ASPIRIN EC 81MG TABLET 81 MG PO (09:34)
[2023-08-09] MEDS: FLUTICASONE PROP 50MCG NASAL SPRAY 16GM 1 SPRAY NS (09:35)
[2023-08-09] MEDS: ATORVASTATIN 20MG TABLET 20 MG PO (09:37)
--- NOTE | 2023-08-09 10:15 | EXP.CARD.PN ---
Subjective Subjective Date: 08/09/23 Time: 08:00 Principal diagnosis: PAD Interval history: This is a 62-year-old white gentleman who was admitted to the hospital following a bilateral iliofemoral runoff with significant stenting to the bilateral lower extremities. The patient was admitted overnight for observation and to get IV fluids to prevent contrast nephropathy. This morning the patient does complain of soreness in the bilateral groins but no significant pain. He denies any chest pain or pressure. He denies any shortness of breath or edema. He denies any fever, chills, nausea, vomiting, diarrhea, PND or orthopnea. Bilateral runoff shows: Right renal artery singular normal Left renal artery singular normal Infrarenal abdominal aorta widely patent Right common iliac arteries patent Right external iliac artery is subtotally occluded Right internal iliac arteries patent Right common femoral artery has 30% diffuse stenoses Left common internal and external iliac arteries are entirely occluded Left common femoral artery has a 50% stenosis Left profunda femoris left SFA and left popliteal arteries are widely patent There is two-vessel runoff below the knee on the left side following revascularization Extensive thrombus in the left femoral artery IMPRESSION Initially occluded left common internal and external iliac artery Successful intravascular lithotripsy to the left common iliac artery Successful stenting of the left common iliac artery 100% stenosis reduced to 0% Successful stenting of the left external iliac artery 100% occlusion reduced to 0% Persistent moderate stenosis of the left common femoral artery Widely patent left SFA and left popliteal artery with three-vessel runoff below the knee Thrombus in the left profunda femoris artery with normal flow Successful stenting of the right external iliac artery severe disease with subtotal occlusion reduced to 0% with 2 stents as described above Successful mechanical thrombectomy to the left femoral artery large thrombectomy reduced to 0% PLAN 1. Dual antiplatelet therapy 2. IV fluids overnight 3. Check chemistry panel in the morning 4. LDL less than 55 to be achieved with high intensity statin 5. Avoidance of tobacco products 6. Cardiac rehabilitation 7. Risk factor modification Exam Data for Last 24 hours Vital signs and Labs for Last 24 Hours: Temp Pulse Resp BP Pulse Ox O2 Del Method 98.4 F 95 H 18 129/74 95 Room Air 08/09/23 08:00 08/09/23 08:00 08/09/23 08:00 08/09/23 08:00 08/09/23 08:00 08/09/23 08:00 Laboratory Results - last 24 hr 08/08/23 08:50: Blood Type Confirm O Positive 08/08/23 15:40: WBC 18.2 H D, RBC 3.64 L, Hgb 12.3 L D, Hct 37.4 L, MCV 102.8 H, MCH 33.8 H, MCHC 32.9, RDW 13.4, Plt Count 195, MPV 10.3, Neut % (Auto) 85.7 H, Lymph % (Auto) 7.4 L, [place] % (Auto) 6.0, Eos % (Auto) 0.4, Baso % (Auto) 0.5, Neut # (Auto) 15.6 H, Lymph # (Auto) 1.4, [place] # (Auto) 1.1 H, Eos # (Auto) 0.1, Baso # (Auto) 0.1, Total Counted 100, Neutrophils % (Manual) 88 H, Lymphocytes % (Manual) 10, Monocytes % (Manual) 2, Platelet Estimate Normal, RBC Morphology Normal, Blood Type O Positive, Antibody Screen Negative, Crossmatch ([facility]) See Detail 08/08/23 17:57: POC Glucose 104 08/08/23 19:33: PT 11.4, INR 1.06, APTT 25.2, Lactate 2.3 H 08/08/23 23:40: Lactate 1.0 08/09/23 01:20: APTT 191.6 H* 08/09/23 06:28: POC Glucose 116 H 08/09/23 06:29: WBC 13.3 H D, RBC 3.19 L, Hgb 10.7 L D, Hct 31.5 L, MCV 98.6 H, MCH 33.4 H, MCHC 33.9, RDW 13.5, Plt Count 201, MPV 11.0 H, Neut % (Auto) 77.6, Lymph % (Auto) 13.4, [place] % (Auto) 8.2, Eos % (Auto) 0.5, Baso % (Auto) 0.4, Neut # (Auto) 10.3 H, Lymph # (Auto) 1.8, [place] # (Auto) 1.1 H, Eos # (Auto) 0.1, Baso # (Auto) 0.1, Sodium 138, Potassium 3.7 D, Chloride 110 H, Carbon Dioxide 18 L, Anion Gap 13.7, BUN 23 H, Creatinine 1.30 H, Estimated Creat Clear 83, Estimated GFR 56 L, Est GFR ( Amer) 68, Glucose 118 H D, Calcium 7.8 L 08/09/23 08:02: APTT 66.1 H* I & O for Last 24 hours: Intake & Output 08/06/23 08/07/23 08/08/23 08/09/23 23:59 23:59 23:59 23:59 Intake Total 1306 / 1306 Output Total 110 / 460 850 / 850 Balance 1196 / 846 -850 / -850 Weight 207 lb 219 lb 0.115 oz Narrative: CT abdomen shows: Bilateral inguinal region subcutaneous soft tissue stranding. Some high density into the left side of an incompletely visualized scrotum, possible hemorrhage. Fatty liver. Benign-appearing renal cysts. Constitutional Constitutional: no acute distress and average body habitus *Routine HEENT Exam Head: Present normocephalic and atraumatic ENT: Present mucous membranes moist *Routine Neck Exam Neck: Present supple, full ROM and normal carotid upstroke; Absent JVD, carotid bruit or lymphadenopathy *Routine Respiratory Exam Respiratory: Present CTA bilaterally, normal respiratory effort, able to speak in complete sentences and symmetric chest movement *Routine Cardiovascular Exam Cardiovascular: Present RRR, Normal S1 and Normal S2; Absent murmur or gallop *Routine Abdominal Exam Abdominal: Present soft and normoactive bowel sounds; Absent tenderness, distended or organomegaly *Routine Extremities Exam Extremities: Present full ROM, pulses intact and normal capillary refill; Absent cyanosis, clubbing or edema Comments: Bilateral groin soreness No scrotal edema or pain. *Routine Skin Exam Skin: Present intact and warm; Absent erythema *Routine Neurological Exam Neurological: Present alert, oriented X3 and CN II-XII intact; Absent sensory deficit or motor deficit Routine Psychiatric Exam Psychiatric: Present normal affect Progress Note: A&P Assessment and plan (1) PAD (peripheral artery disease): Status: Acute (2) CAD (coronary artery disease): Status: Acute (3) Hypertension: Status: Chronic (4) Hyperlipidemia: Status: Acute (5) Tobacco dependence due to cigarettes: Status: Acute (6) Hypertrophy, scrotum: Status: Acute Assessment and Plan Assessment and Plan for All Diagnoses:: Plan: 1. The patient was admitted to the hospital for observation following bilateral runoff with extensive stenting to the lower extremity. The patient had lithotripsy with stenting of the left common iliac artery as well as stenting of the left external iliac artery. Persistent moderate stenosis of the left common femoral artery. Widely patent left SFA. Thrombus in the left profunda for [place]us[place] with normal flow. The patient also had successful stenting of the right external iliac artery with 2 stents and successful mechanical thrombectomy of the left femoral artery. The patient will be on aspirin and Plavix for dual antiplatelet therapy. 2. The patient does have a history of known coronary artery disease. He denies any chest pain or pressure. No plans for invasive left cardiac catheterization at this time. 3. His blood pressure is well-controlled. 4. His LDL goal is less than 55. The patient is on a statin. 5. Tobacco cessation is highly advised and counseled. 6. The patient did have a CT of the abdomen which showed some soft tissue stranding to the bilateral groins. There was also high density noted to the left side of his scrotum that was not well-visualized, possible hemorrhage. Will get a scrotal ultrasound today. 7. The patient does have extensive groins tenderness. The patient did have a very long difficult procedure to his bilateral lower extremities. Will send him and some pain medication as he will likely develop worsening pain to his groins once he initially gets home. Will send him in Percocet 5/325 mg 1 tablet every 4-6 hours as needed for pain, #30 with no refills. 8. The patient's bilateral lower extremities are warm and his bilateral pulses are palpable. Will stop the heparin drip. 9. The patient is stable for discharge home today from a cardiac standpoint as long as his scrotum ultrasound shows no significant hemorrhage. He will be sent home on dual antiplatelet therapy. He will be sent home with pain medications to use as needed. 10. The patient will need to follow-up in cardiology clinic next week. Thank you for the opportunity to help participate in the care of this patient. All recommendations and orders are per Dr. Drake.
--- NOTE | 2023-08-09 10:18 | HMH.PHAINT1 ---
Pharmacy Intervention Comments: MEDICATION RECONCILIATION COMPLETE USING LIST FROM MOST RECENT CARDIOLOGY OFFICE VISIT AND EXTERNAL PHARMACY FILL HISTORY. CALLED AND SPOKE WITH PATIENT'S NURSE (TREVER) AND HE STATES HE NO LONGER USES THE [facility].
[2023-08-09] MEDS: TAMSULOSIN 0.4MG CAPSULE 0.800000000000000044 MG PO (10:25)
[2023-08-09 11:09] LABS: Microscopic, Urine URINE MICROSCOPIC (MICROSCOPIC)
[2023-08-09 11:13] LABS: Appearance,Urine CLEAR (Clear); Bilirubin,Urine Negative (Negative); Blood, Urine TRACE-I (Negative); Color,Urine YELLOW (Yellow); Glucose,Urine (UA) Negative (Negative); Ketones,Urine Negative (Negative); Leukocyte Esterase,Urine Negative (Negative); Nitrate,Urine Negative (Negative); Protein,Urine Negative (Negative); Specific Gravity, Urine 1.015 (1.005-1.030); Urobilinogen,Urine 0.2 EU/dl (0.2)
[2023-08-09 11:55] LABS: Bacteria,Urine Trace /lpf; RBC,Urine Occasional #/hpf (0-3)
[2023-08-09 12:00] VITALS: BP 127/72; PULSE 79; RESP 17; TEMP 36.3; O2SAT 97
[2023-08-09 12:00] LABS: POC Glucose,Bedside 131 (70-110)
[2023-08-09 12:02] VITALS: PULSE 90
--- NOTE | 2023-08-09 12:05 | EXP.DC.SUM ---
General Admission date:: 08/08/23 Discharge date: 08/09/23 HPI HPI HPI: Patient is a 62-year-old male with past medical history of prostate cancer PAD, CAD who presents to the hospital for peripheral vascular disease catheterization procedure.. Patient had stent placement and left iliac artery. Patient was admitted to the hospital for further observation. Patient denied chest pain shortness of breath nausea vomiting diarrhea constipation dysuria fevers and chills at the time of my evaluation. On patient's arrival on the floor patient has not been able to make urine, patient is having some urinary retention. Hospital Course Hospital Course Hospital Course: Patient was seen and evaluated at the bedside on the day of discharge. Patient is stable for discharge. Patient wishes to be discharged. All patient questions were answered and patient was given time to ask questions. Patient was discharged in stable condition. Patient understands that she can return to ER in case of any sudden changes in health. Total time spent on DC - 38 mins Patient is a 62-year-old male with past medical history of prostate cancer PAD, CAD who presents to the hospital for peripheral vascular disease catheterization procedure.. Patient had stent placement and left iliac artery. Patient was admitted to the hospital for further observation. Patient denied chest pain shortness of breath nausea vomiting diarrhea constipation dysuria fevers and chills at the time of my evaluation. On patient's arrival on the floor patient has not been able to make urine, patient is having some urinary retention which was resolved at discharge Assessment PAD CAD History of prostatic cancer Urinary retention Hypotension Leukocytosis likely reactive CKD stage III History of anxiety Plan Status post stenting which was later removed, intervention per cardiology - see cardiology note on 08/09/2023 Start aspirin, Plavix Pain control f/u with Cardiology as OP Exam Data for Last 24 hours Vital signs and Labs for Last 24 Hours: Temp Pulse Resp BP Pulse Ox O2 Del Method 98.4 F 95 H 18 129/74 95 Room Air 08/09/23 08:00 08/09/23 08:00 08/09/23 08:00 08/09/23 08:00 08/09/23 08:00 08/09/23 11:00 Laboratory Results - last 24 hr 08/08/23 08:50: Blood Type Confirm O Positive 08/08/23 10:54: Urine Color Yellow, Urine Appearance Clear, Urine pH 6.0, Ur Specific [address] 1.015, Urine Protein Negative, Urine Glucose (UA) Negative, Urine Ketones Negative, Urine Blood Trace-i, Urine Nitrate Negative, Urine Bilirubin Negative, Urine Urobilinogen 0.2, Ur Leukocyte Esterase Negative, Urine RBC Occasional, Urine WBC None, Ur Squamous Epith Cells None, Urine Bacteria Trace 08/08/23 15:40: WBC 18.2 H D, RBC 3.64 L, Hgb 12.3 L D, Hct 37.4 L, MCV 102.8 H, MCH 33.8 H, MCHC 32.9, RDW 13.4, Plt Count 195, MPV 10.3, Neut % (Auto) 85.7 H, Lymph % (Auto) 7.4 L, [place] % (Auto) 6.0, Eos % (Auto) 0.4, Baso % (Auto) 0.5, Neut # (Auto) 15.6 H, Lymph # (Auto) 1.4, [place] # (Auto) 1.1 H, Eos # (Auto) 0.1, Baso # (Auto) 0.1, Total Counted 100, Neutrophils % (Manual) 88 H, Lymphocytes % (Manual) 10, Monocytes % (Manual) 2, Platelet Estimate Normal, RBC Morphology Normal, Blood Type O Positive, Antibody Screen Negative, Crossmatch ([facility]) See Detail 08/08/23 17:57: POC Glucose 104 08/08/23 19:33: PT 11.4, INR 1.06, APTT 25.2, Lactate 2.3 H 08/08/23 23:40: Lactate 1.0 08/09/23 01:20: APTT 191.6 H* 08/09/23 06:28: POC Glucose 116 H 08/09/23 06:29: WBC 13.3 H D, RBC 3.19 L, Hgb 10.7 L D, Hct 31.5 L, MCV 98.6 H, MCH 33.4 H, MCHC 33.9, RDW 13.5, Plt Count 201, MPV 11.0 H, Neut % (Auto) 77.6, Lymph % (Auto) 13.4, [place] % (Auto) 8.2, Eos % (Auto) 0.5, Baso % (Auto) 0.4, Neut # (Auto) 10.3 H, Lymph # (Auto) 1.8, [place] # (Auto) 1.1 H, Eos # (Auto) 0.1, Baso # (Auto) 0.1, Sodium 138, Potassium 3.7 D, Chloride 110 H, Carbon Dioxide 18 L, Anion Gap 13.7, BUN 23 H, Creatinine 1.30 H, Estimated Creat Clear 83, Estimated GFR 56 L, Est GFR ( Amer) 68, Glucose 118 H D, Calcium 7.8 L 08/09/23 08:02: APTT 66.1 H* 08/09/23 11:54: POC Glucose 131 H I & O for Last 24 hours: Intake & Output 08/06/23 08/07/23 08/08/23 08/09/23 23:59 23:59 23:59 23:59 Intake Total 1306 / 1306 Output Total 110 / 460 850 / 850 Balance 1196 / 846 -850 / -850 Weight 93.894 kg 99.34 kg Constitutional Constitutional: no acute distress *Routine HEENT Exam Head: Present normocephalic Eye: Present EOMI and PERRL ENT: Present mucous membranes moist *Routine Neck Exam Neck: Present supple; Absent lymphadenopathy *Routine Respiratory Exam Respiratory: Present CTA bilaterally *Routine Cardiovascular Exam Cardiovascular: Present RRR *Routine Abdominal Exam Abdominal: Present soft and normoactive bowel sounds; Absent tenderness *Routine Extremities Exam Extremities: Absent cyanosis, clubbing or edema *Routine Skin Exam Skin: Present warm; Absent rash *Routine Neurological Exam Neurological: Present alert and oriented X3 Results Data Completed and Pending Labs on day of discharge: Labs from last 24 hours 08/09/23 08/09/23 08/09/23 11:54 08:02 06:29 WBC 13.3 H D RBC 3.19 L Hgb 10.7 L D Hct 31.5 L MCV 98.6 H MCH 33.4 H MCHC 33.9 RDW 13.5 Plt Count 201 MPV 11.0 H Neut % (Auto) 77.6 Lymph % (Auto) 13.4 [place] % (Auto) 8.2 Eos % (Auto) 0.5 Baso % (Auto) 0.4 Neut # (Auto) 10.3 H Lymph # (Auto) 1.8 [place] # (Auto) 1.1 H Eos # (Auto) 0.1 Baso # (Auto) 0.1 Total Counted Neutrophils % (Manual) Lymphocytes % (Manual) Monocytes % (Manual) Platelet Estimate RBC Morphology PT INR APTT 66.1 H* Sodium 138 Potassium 3.7 D Chloride 110 H Carbon Dioxide 18 L Anion Gap 13.7 BUN 23 H Creatinine 1.30 H Estimated Creat Clear 83 Estimated GFR 56 L Est GFR ( Amer) 68 Glucose 118 H D POC Glucose 131 H Lactate Calcium 7.8 L Urine Color Urine Appearance Urine pH Ur Specific [address] Urine Protein Urine Glucose (UA) Urine Ketones Urine Blood Urine Nitrate Urine Bilirubin Urine Urobilinogen Ur Leukocyte Esterase Urine RBC Urine WBC Ur Squamous Epith Cells Urine Bacteria Blood Type Blood Type Confirm Antibody Screen Crossmatch ([facility]) 08/09/23 08/09/23 08/08/23 06:28 01:20 23:40 WBC RBC Hgb Hct MCV MCH MCHC RDW Plt Count MPV Neut % (Auto) Lymph % (Auto) [place] % (Auto) Eos % (Auto) Baso % (Auto) Neut # (Auto) Lymph # (Auto) [place] # (Auto) Eos # (Auto) Baso # (Auto) Total Counted Neutrophils % (Manual) Lymphocytes % (Manual) Monocytes % (Manual) Platelet Estimate RBC Morphology PT INR APTT 191.6 H* Sodium Potassium Chloride Carbon Dioxide Anion Gap BUN Creatinine Estimated Creat Clear Estimated GFR Est GFR ( Amer) Glucose POC Glucose 116 H Lactate 1.0 Calcium Urine Color Urine Appearance Urine pH Ur Specific [address] Urine Protein Urine Glucose (UA) Urine Ketones Urine Blood Urine Nitrate Urine Bilirubin Urine Urobilinogen Ur Leukocyte Esterase Urine RBC Urine WBC Ur Squamous Epith Cells Urine Bacteria Blood Type Blood Type Confirm Antibody Screen Crossmatch ([facility]) 08/08/23 08/08/23 08/08/23 19:33 17:57 15:40 WBC 18.2 H D RBC 3.64 L Hgb 12.3 L D Hct 37.4 L MCV 102.8 H MCH 33.8 H MCHC 32.9 RDW 13.4 Plt Count 195 MPV 10.3 Neut % (Auto) 85.7 H Lymph % (Auto) 7.4 L [place] % (Auto) 6.0 Eos % (Auto) 0.4 Baso % (Auto) 0.5 Neut # (Auto) 15.6 H Lymph # (Auto) 1.4 [place] # (Auto) 1.1 H Eos # (Auto) 0.1 Baso # (Auto) 0.1 Total Counted 100 Neutrophils % (Manual) 88 H Lymphocytes % (Manual) 10 Monocytes % (Manual) 2 Platelet Estimate Normal RBC Morphology Normal PT 11.4 INR 1.06 APTT 25.2 Sodium Potassium Chloride Carbon Dioxide Anion Gap BUN Creatinine Estimated Creat Clear Estimated GFR Est GFR ( Amer) Glucose POC Glucose 104 Lactate 2.3 H Calcium Urine Color Urine Appearance Urine pH Ur Specific [address] Urine Protein Urine Glucose (UA) Urine Ketones Urine Blood Urine Nitrate Urine Bilirubin Urine Urobilinogen Ur Leukocyte Esterase Urine RBC Urine WBC Ur Squamous Epith Cells Urine Bacteria Blood Type O Positive Blood Type Confirm Antibody Screen Negative Crossmatch ([facility]) See Detail 08/08/23 08/08/23 10:54 08:50 WBC RBC Hgb Hct MCV MCH MCHC RDW Plt Count MPV Neut % (Auto) Lymph % (Auto) [place] % (Auto) Eos % (Auto) Baso % (Auto) Neut # (Auto) Lymph # (Auto) [place] # (Auto) Eos # (Auto) Baso # (Auto) Total Counted Neutrophils % (Manual) Lymphocytes % (Manual) Monocytes % (Manual) Platelet Estimate RBC Morphology PT INR APTT Sodium Potassium Chloride Carbon Dioxide Anion Gap BUN Creatinine Estimated Creat Clear Estimated GFR Est GFR ( Amer) Glucose POC Glucose Lactate Calcium Urine Color Yellow Urine Appearance Clear Urine pH 6.[address] Urine Protein Negative Urine Glucose (UA) Negative Urine Ketones Negative Urine Blood Trace-i Urine Nitrate Negative Urine Bilirubin Negative Urine Urobilinogen 0.2 Ur Leukocyte Esterase Negative Urine RBC Occasional Urine WBC None Ur Squamous Epith Cells None Urine Bacteria Trace Blood Type Blood Type Confirm O Positive Antibody Screen Crossmatch ([facility]) DS: Diagnosis Discharge Diagnosis (1) PAD (peripheral artery disease): Status: Acute Code(s): I73.9 - Peripheral vascular disease, unspecified (2) CAD (coronary artery disease): Status: Acute Code(s): I25.10 - Atherosclerotic heart disease of [place] coronary artery without angina pectoris (3) Hypertension: Status: Chronic Code(s): I10 - Essential (primary) hypertension Qualifiers: Hypertension type: essential hypertension Qualified Code(s): I10 - Essential (primary) hypertension (4) Hyperlipidemia: Status: Acute Code(s): E78.5 - Hyperlipidemia, unspecified (5) Tobacco dependence due to cigarettes: Status: Acute Code(s): F17.210 - Nicotine dependence, cigarettes, uncomplicated (6) Hypertrophy, scrotum: Status: Acute Code(s): N50.89 - Other specified disorders of the male genital organs Meds Home Medications and Allergies Home Medications Medication Instructions Recorded Confirmed Type atorvastatin 20 mg tablet 20 mg PO DAILY Cholesterol 08/08/23 08/08/23 History cetirizine 10 mg tablet 10 mg PO DAILY Allergy Symptoms 08/08/23 08/08/23 History cyclobenzaprine 10 mg tablet 10 mg PO TIDP PRN MUSCLE SPASMS 08/08/23 08/08/23 History ergocalciferol (vitamin D2) 1,250 50,000 unit PO WEEKLY Supplement 08/08/23 08/08/23 History mcg (50,000 unit) capsule fluticasone propionate 50 1 spray intranasal DAILY Allergy 08/08/23 08/08/23 History mcg/actuation nasal Symptoms spray,suspension hydrochlorothiazide 12.5 mg capsule 12.5 mg PO DAILY Fluid 08/08/23 08/08/23 History levothyroxine 137 mcg tablet 137 mcg PO DAILYDM THYROID 08/08/23 08/09/23 History lisinopril 20 mg tablet 20 mg PO BID High Blood Pressure 08/08/23 08/08/23 History metoprolol tartrate 100 mg tablet 100 mg PO BID High Blood Pressure 08/08/23 08/08/23 History omeprazole 40 mg capsule,delayed 40 mg PO DAILY Acid Reflux 08/08/23 08/08/23 History release albuterol sulfate 90 mcg/actuation 1 inh inhalation QIDP PRN 08/09/23 08/09/23 History aerosol inhaler Shortness Of Breath Or Wheezing atorvastatin 20 mg tablet 20 mg PO DAILY 30 days #30 tabs 08/09/23 Rx clopidogrel 75 mg tablet 75 mg PO DAILY 30 days #30 tabs 08/09/23 Rx diazepam 10 mg tablet 10 mg PO BIDP PRN Anxiety 08/09/23 08/09/23 History naproxen 500 mg tablet 500 mg PO BID Pain 08/09/23 08/08/23 History New Prescriptions to Start Prescriptions: atorvastatin Carlos,Irfan clopidogrel Carlos,Irfan Allergies Allergy/AdvReac Type Severity Reaction Status Date / Time codeine [CODEINE] Allergy Unknown Unknown Verified 07/25/23 12:37 allergy reaction Discharge Plan Disposition Patient Disposition: Home, Self-Care Condition: Good Follow up Plan Follow up with: Lionel St MD [Staff Physician] - Enter time for follow up Prescriptions/Medication Reconciliation: New atorvastatin 20 mg Tablet 20 mg PO DAILY 30 Days Qty: 30 0RF clopidogrel 75 mg Tablet 75 mg PO DAILY 30 Days Qty: 30 0RF Continued levothyroxine 137 mcg tablet 137 mcg PO DAILYDM Rx Instructions: TAKE ONE TABLET BY MOUTH ONCE A DAY atorvastatin 20 mg tablet 20 mg PO DAILY Rx Instructions: TAKE ONE TABLET BY MOUTH ONCE A DAY cetirizine 10 mg tablet 10 mg PO DAILY Rx Instructions: TAKE ONE TABLET BY MOUTH ONCE A DAY metoprolol tartrate 100 mg tablet 100 mg PO BID Rx Instructions: TAKE ONE TABLET BY MOUTH 2 TIMES A DAY lisinopril 20 mg tablet 20 mg PO BID Rx Instructions: TAKE ONE TABLET BY MOUTH 2 TIMES A DAY omeprazole 40 mg capsule,delayed release(DR/EC) 40 mg PO DAILY Rx Instructions: TAKE ONE CAPSULE BY MOUTH ONCE A DAY FOR STOMACH cyclobenzaprine 10 mg tablet 10 mg PO TIDP PRN (Reason: MUSCLE SPASMS) Rx Instructions: TAKE ONE TABLET BY MOUTH 3 TIMES A DAY NEEDED FOR MUSCLE SPASMS hydrochlorothiazide 12.5 mg capsule 12.5 mg PO DAILY Rx Instructions: TAKE 1 CAPSULE BY MOUTH ONCE DAILY ergocalciferol (vitamin D2) 1,250 mcg (50,000 unit) capsule 50,000 unit PO WEEKLY fluticasone propionate 50 mcg/actuation spray,suspension 1 spray intranasal DAILY Rx Instructions: USE 1 SPRAY IN EACH NOSTRIL ONCE A DAY diazepam 10 mg tablet 10 mg PO BIDP PRN (Reason: Anxiety) albuterol sulfate 90 mcg/actuation Hfa Aerosol Inhaler 1 inh INHALATION QIDP PRN (Reason: Shortness Of Breath Or Wheezing) naproxen 500 mg tablet 500 mg PO BID Problem Reconciliation Problems Reviewed?: Yes Patient Discharge Instructions ACTIVITY: Ambulate as tolerated DIET: continue same diet Patient Instructions: DI for Peripheral Vascular (Arterial) Disease, DI for Surgical Site Infection Providers Primary Care Provider: Dejuan Killian Provider: Robert Gonzalez Attending Provider: Robert Gonzalez
--- NOTE | 2023-08-14 14:00 | CARE MANAGER ---
Contacted patient related to hospital discharge. He has his new medications and is aware of follow up appointment. Denies questions or concerns at this time.ELISABETH Mendes
== END 2023-08-09 14:38 | disposition home or self-care (01) ==
PROVIDERS: Internal Medicine; Admitting Provider Internal Medicine; PCP Nurse Practitioner Family; Visit Provider Internal Medicine
DX: I74.3 Embolism and thrombosis of arteries of the lower extremities (principal); I74.5 Embolism and thrombosis of iliac artery; I15.0 Renovascular hypertension; I70.1 Atherosclerosis of renal artery; I77.1 Stricture of artery; I70.292 Other atherosclerosis of native arteries of extremities, left leg; I70.92 Chronic total occlusion of artery of the extremities; I12.9 Hypertensive chronic kidney disease with stage 1 through stage 4 chronic kidney disease, or unspecified chronic kidney disease; F17.210 Nicotine dependence, cigarettes, uncomplicated; L03.032 Cellulitis of left toe; R33.9 Retention of urine, unspecified; I95.9 Hypotension, unspecified; I25.10 Atherosclerotic heart disease of native coronary artery without angina pectoris; E78.5 Hyperlipidemia, unspecified; N50.89 Other specified disorders of the male genital organs; N18.30 Chronic kidney disease, stage 3 unspecified; Z79.899 Other long term (current) drug therapy
CPT/HCPCS: 36252; 36415; 37184; 74176; 76870; 80048; 81001; 82962; 83605; 85007; 85025; 85610; 85730; 86850; 99152; 99153; C1725; C1769; C1776; C1876; C1894; C9765; G0378; J1644; J2720; Q9966

== ENCOUNTER → 2023-08-15 11:39 | Outpatient (CLI) | payer MEDICARE, OTHER, SELFPAY ==
[2023-08-15 11:56] LABS: Basophils # 0.1 K/mm3 (0-0.2); Basophils % 0.8 % (0.1-2.0); Eosinophils # 0.6 K/mm3 (0.0-0.4); Hematocrit 30.4 % (42.0-52.0); Hemoglobin 10.4 g/dL (14.1-18.0); Lymphocytes # 1.8 K/mm3 (0.7-4.5); Lymphocytes % 14.3 % (10-50); Mean Corpuscular HGB Conc 34.1 g/dL (31.8-35.4); Mean Corpuscular Hemoglobin 33.6 pg (27.0-31.2); Mean Corpuscular Volume 98.4 fl (80-94); Mean Platelet Volume 10.5 fl (7.4-10.4); Neutrophils # 8.8 K/mm3 (1.8-7.8); Neutrophils % 71.9 % (37.0-80.0); Platelet Count 376 K/mm3 (142-424); Red Blood Count 3.09 M/mm3 (4.60-6.20); Red Cell Distribution Width 13.5 % (11.5-17.5); White Blood Count 12.2 K/mm3 (4.8-10.8)
[2023-08-15 12:57] LABS: Chloride 106 mmol/L (98-107); Potassium 4.5 mmoL/L (3.5-5.1); Sodium 141 mmol/L (136-145)
[2023-08-15 13:00] LABS: Anion Gap 13.5 mEq/L (5-15); Blood Urea Nitrogen 17 mg/dl (9-20); Calcium 8.6 mg/dl (8.4-10.2); Carbon Dioxide 26 mmol/L (22.0-30.0); Estimated Glomerular Filt Rate 51 ml/min (>60); GFR (African American) 62 ML/MIN (>60); Glucose 94 mg/dl (74-100)
== END ==
LOC: LAB 11:41
PROVIDERS: PCP Internal Medicine; Visit Provider Physician Assistant
DX: I25.10 Atherosclerotic heart disease of native coronary artery without angina pectoris; I73.9 Peripheral vascular disease, unspecified; R94.31 Abnormal electrocardiogram [ECG] [EKG]; Z87.891 Personal history of nicotine dependence; I11.9 Hypertensive heart disease without heart failure
CPT/HCPCS: 36415; 80048; 85025

== ENCOUNTER 2023-08-26 12:51 | Outpatient (CLI) | payer MEDICARE, OTHER, SELFPAY ==
--- NOTE | 2023-08-26 12:57 | CA_ITS ---
APPROVED REPORT EXAM: Comprehensive 2D, Doppler, and color-flow Echocardiogram Structural Test Engineer: Cynthia Velazquez CRT Ht: 5 ft 7 in Wt: 207lbs BSA: 2.05 BP: 168/96 mmHg Indications: CAD, Hypertension/HDD 2D Dimensions LA Volume 13.20 mL LA Volume Index 6.30 mL/m2 (M/F) 16-34 M-Mode Dimensions RVDd 2.22 cm (0.9-2.6) LA Diam 3.37 cm (1.9-4.0) LVDd 3.97 cm (3.5-5.7) LVDs 2.29 cm (3.5-5.7) IVSd 1.54 cm (0.6-1.1) PWd 1.07 cm (0.6-1.1) EF (Teich) 74.00% FS 42.30% EDV (Teich) 68.80 mL TAPSE 2.34 (<1.7) ESV (Teich) 17.90 mL LV Diastology E Decel Time 163 (160-240 msec) E/A Ratio 0.60 MED A' 9.50 cm/s LAT A' 9.90 cm/s Aortic Valve AO Peak GR. 3.90 mmHg Mitral Valve MV E Max Sunil. 48.0 (40-130 cm/s) MV A Velocity 81.0 (40-130 cm/s) E/A Ratio 0.60 MV PHT 48.0 ms Tricuspid Valve TR P. Velocity 131.00 cm/s RAP Estimate 10.00 mmHg RVSP 16.90 mmHg Left Ventricle The left ventricle is normal size. The left ventricular systolic function is normal. The left ventricular ejection fraction is within the normal range. There is increased LV wall thickness. There is normal LV segmental wall motion. Transmitral Doppler flow pattern suggests impaired LV relaxation. LVEF is 60%. Right Ventricle The right ventricle is normal size. The right ventricular systolic function is normal. Atria The left atrium size is normal. The right atrium size is normal. THere is no Doppler evidence of interatrial shunt. Aortic Valve The aortic valve opens well. There is no aortic valvular stenosis. No aortic regurgitation is present. Mitral Valve The mitral valve is normal in structure. No evidence of mitral valve stenosis. There is no mitral valve regurgitation noted. Tricuspid Valve The tricuspid valve leaflets are thin and pliable. Trace tricuspid regurgitation. There is insufficient TR jet to estimate RVSP. Pulmonic Valve The pulmonary valve is normal in structure. Trace pulmonic regurgitation. Great Vessels The aortic root is normal in size. The ascending aorta is normal in size. IVC is normal in size and collapses >50% with inspiration. Pericardium There is no pericardial effusion. Other Information Study Quality: Technically Difficult Conclusion Technically difficult study due to poor accoustic windows. Normal biventricular systolic function. No significant valvular stenosis or regurgitation. Electronically signed by : Jazzmine Drake MD 08/30/2023 14:51:05
== END 2023-08-26 23:59 ==
LOC: RT 12:52
PROVIDERS: PCP Nurse Practitioner Family; Visit Provider Physician Assistant
DX: R94.31 Abnormal electrocardiogram [ECG] [EKG] (principal)
CPT/HCPCS: 93306

== ENCOUNTER 2023-11-27 10:29 | Outpatient (CLI) | payer MEDICARE, OTHER, SELFPAY ==
[2023-11-27 18:32] LABS: Basophils # 0.1 K/mm3 (0-0.2); Basophils % 1.2 % (0.1-2.0); Eosinophils # 0.3 K/mm3 (0.0-0.4); Eosinophils % 3.1 % (0.1-12.0); Hematocrit 46.4 % (42.0-52.0); Hemoglobin 14.4 g/dL (14.1-18.0); Lymphocytes # 1.5 K/mm3 (0.7-4.5); Lymphocytes % 15.5 % (10-50); Mean Corpuscular HGB Conc 31.1 g/dL (31.8-35.4); Mean Corpuscular Hemoglobin 30.9 pg (27.0-31.2); Mean Corpuscular Volume 99.2 fl (80-94); Mean Platelet Volume 12.6 fl (7.4-10.4); Monocytes # 0.8 K/mm3 (0.1-1.0); Monocytes % 8.4 % (1.7-9.3); Neutrophils % 71.8 % (37.0-80.0); Platelet Count 233 K/mm3 (142-424); Red Blood Count 4.67 M/mm3 (4.60-6.20); Red Cell Distribution Width 14.4 % (11.5-17.5); White Blood Count 9.7 K/mm3 (4.8-10.8)
[2023-11-27 18:58] LABS: Alanine Aminotransferase 19 U/L (12-78); Albumin Level 4.7 g/dl (3.5-5.0); Alkaline Phosphatase 96 U/L (38-126); Anion Gap 17.7 mEq/L (5-15); Aspartate Amino Transferase 29 U/L (17-59); Bilirubin,Direct 0.3 mg/dl (0.0-0.4); Bilirubin,Indirect 0.3 mg/dL (0.0-0.9); Bilirubin,Total 0.6 mg/dl (0.2-1.3); Bilirubin,Unconjugated 0.3 mg/dL (0.0-1.1); Blood Urea Nitrogen 30 mg/dl (9-20); Calcium 9.9 mg/dl (8.4-10.2); Carbon Dioxide 24 mmol/L (22.0-30.0); Chloride 101 mmol/L (98-107); Chol/HDL Ratio 6.2 (1-3.5); Cholesterol 281 mg/dl (140-200); Estimated Glomerular Filt Rate 38 ml/min (>60); GFR (African American) 46 ML/MIN (>60); Glucose 97 mg/dl (74-100); HDL Cholesterol 45 mg/dl (40-60); Potassium 5.7 mmoL/L (3.5-5.1); Sodium 137 mmol/L (136-145); Total Protein,Serum 8.2 g/dl (6.3-8.2); Triglycerides 217 mg/dl (30-150); VLDL Cholesterol 43 mg/dL (0-40)
[2023-11-27 19:09] LABS: Free T4 (Free Thyroxine) 1.16 ng/dl (0.78-2.19)
[2023-11-27 20:03] LABS: 25-OH Vitamin D, Total 29.8 ng/mL (30-100)
[2023-11-27 20:16] LABS: Thyroid Stimulating Hormone 7.53 uIU/mL (0.465-4.68)
== END 2023-11-27 23:59 | disposition home or self-care (01) ==
LOC: LAB.DROPOF 11-28 10:30
PROVIDERS: Physician Assistant; PCP Nurse Practitioner Family; Visit Provider Nurse Practitioner Family
DX: I25.10 Atherosclerotic heart disease of native coronary artery without angina pectoris (principal); I73.9 Peripheral vascular disease, unspecified; E55.9 Vitamin D deficiency, unspecified; Z68.32 Body mass index [BMI] 32.0-32.9, adult; Z87.891 Personal history of nicotine dependence; E66.9 Obesity, unspecified; Z79.899 Other long term (current) drug therapy
CPT/HCPCS: 80048; 80061; 80076; 82306; 83735; 84439; 84443; 85025

== ENCOUNTER 2023-12-03 09:07 | Outpatient (CLI) | payer MEDICARE, OTHER, SELFPAY ==
[2023-12-03 10:55] LABS: Anion Gap 12.8 mEq/L (5-15); Blood Urea Nitrogen 26 mg/dl (9-20); Calcium 9.8 mg/dl (8.4-10.2); Carbon Dioxide 29 mmol/L (22.0-30.0); Chloride 105 mmol/L (98-107); Estimated Glomerular Filt Rate 44 ml/min (>60); GFR (African American) 53 ML/MIN (>60); Glucose 101 mg/dl (74-100); Potassium 5.8 mmoL/L (3.5-5.1); Sodium 141 mmol/L (136-145)
== END 2023-12-03 23:59 ==
PROVIDERS: PCP Nurse Practitioner Family; Visit Provider Physician Assistant
DX: I10 Essential (primary) hypertension (principal); I25.10 Atherosclerotic heart disease of native coronary artery without angina pectoris; I73.9 Peripheral vascular disease, unspecified; E87.5 Hyperkalemia
CPT/HCPCS: 36415; 80048

== ENCOUNTER 2025-01-27 08:56 | Outpatient (CLI) | payer MEDICARE, OTHER, SELFPAY ==
[2025-01-27 19:03] LABS: Alanine Aminotransferase 74 U/L (12-78); Albumin Level 4.5 g/dl (3.5-5.0); Albumin/Globulin Ratio 1.3 (1.1-1.8); Alkaline Phosphatase 117 U/L (38-126); Anion Gap 14.3 mEq/L (5-15); Aspartate Amino Transferase 43 U/L (17-59); Bilirubin,Total 0.7 mg/dl (0.2-1.3); Blood Urea Nitrogen 33 mg/dl (9-20); Calcium 10.9 mg/dl (8.4-10.2); Carbon Dioxide 23 mmol/L (22.0-30.0); Chloride 105 mmol/L (98-107); Chol/HDL Ratio 6.6 (1-3.5); Cholesterol 272 mg/dl (140-200); Estimated Glomerular Filt Rate 47 ml/min (>60); GFR (African American) 57 ML/MIN (>60); Globulin 3.5 g/dL (1.3-3.2); Glucose 108 mg/dl (74-100); HDL Cholesterol 41 mg/dl (40-60); Potassium 5.3 mmoL/L (3.5-5.1); Sodium 137 mmol/L (136-145); Triglycerides 211 mg/dl (30-150); VLDL Cholesterol 42 mg/dL (0-40)
[2025-01-27 19:12] LABS: Creatinine,Urine Random 71 mg/dL (Not Estab.)
[2025-01-27 19:14] LABS: Direct LDL Cholesterol 186.59 mg/dL (100-129)
[2025-01-27 19:21] LABS: 25-OH Vitamin D, Total 27.8 ng/mL (30-100)
[2025-01-27 19:35] LABS: Thyroid Stimulating Hormone 7.16 uIU/mL (0.465-4.68)
[2025-01-27 20:04] LABS: Hemoglobin A1C 5.7 % (4.0-6.0)
[2025-01-27 20:35] LABS: Basophils # 0.1 K/mm3 (0-0.2); Basophils % 0.6 % (0.1-2.0); Eosinophils # 0.2 Kmm3 (0.0-0.4); Eosinophils % 1.7 % (0.1-12.0); Hematocrit 42.9 % (42.0-52.0); Hemoglobin 14.1 g/dL (14.1-18.0); Immature Granulocytes # 0.14 10^3uL; Immature Granulocytes % 1.5 %; Lymphocytes # 1.1 K/mm3 (0.7-4.5); Lymphocytes % 11.3 % (10-50); Mean Corpuscular HGB Conc 32.9 g/dL (31.8-35.4); Mean Corpuscular Hemoglobin 32.5 pg (27.0-31.2); Mean Corpuscular Volume 98.8 fl (80-94); Mean Platelet Volume 12.9 fl (7.4-10.4); Monocytes % 10.8 % (1.7-9.3); Neutrophils # 7.1 K/mm3 (1.8-7.8); Neutrophils % 74.1 % (37.0-80.0); Nucleated Red Blood Cells # 0 10^3/uL; Nucleated Red Blood Cells % 0 %; Platelet Count 230 K/mm3 (142-424); Red Blood Count 4.34 M/mm3 (4.60-6.20); Red Cell Distribution Width 12.2 % (11.5-17.5); Red Cell Distribution Width-SD 44.5 fL; White Blood Count 9.6 K/mm3 (4.8-10.8)
[2025-01-27 20:51] LABS: Hepatitis C Ab Qual. W/ RFX NEGATIVE (Negative)
[2025-01-28 04:31] LABS: HIV Combo NEGATIVE (Negative)
[2025-01-29 05:09] LABS: Hepatitis B Surface Antigen Negative (Negative)
== END 2025-01-27 23:59 | disposition home or self-care (01) ==
LOC: LAB.DROPOF 01-28 08:57
PROVIDERS: PCP Nurse Practitioner Family; Visit Provider Nurse Practitioner Family
DX: E03.9 Hypothyroidism, unspecified (principal); Z00.00 Encounter for general adult medical examination without abnormal findings; Z11.59 Encounter for screening for other viral diseases; E55.9 Vitamin D deficiency, unspecified; I10 Essential (primary) hypertension
CPT/HCPCS: 80053; 80061; 82043; 82306; 82570; 83036; 84443; 85025; 86803; 87340; 87389